=== PATIENT | male | born 1985 | race Caucasian/White ===

== ENCOUNTER 2017-05-20 08:56 | Inpatient (IN) | payer MEDICAID ==
[~2017-05-20] VITALS: Ht 188 cm; Wt 50.0 kg
[2017-05-20] VITALS (19 sets, daily range): BP systolic 78–133; BP diastolic 42–84
[2017-05-20] MEDS: ACCU-CHEK COMFORT CURVE STRIP VI SCH ×2 (01:00→18:08)
[2017-05-20] MEDS: InsuLIN REG 1unit/0.01ml Soln (100units/ml) SC SCH ×2 (01:00→18:08)
[2017-05-20 09:57] LABS: Basophils # (auto) 0 uL; Basophils % (auto) 0.2 % (0.0-2.0); Eosinophils # (auto) 0 uL; Hematocrit 44.2 % (41.0-53.0); Hemoglobin 14.5 g/dL (13.5-17.5); Lymphocytes # (auto) 1.1 uL; Lymphocytes % (auto) 12.3 % (10.0-50.0); Mean Corpuscular Hemoglobin 28.8 pg (28.0-32.0); Mean Corpuscular Hgb Conc. 32.8 g/dL (32.0-36.0); Mean Corpuscular Volume 87.7 fL (80.0-100.0); Monocytes # (auto) 1.2 uL; Monocytes % (auto) 13.1 % (0.0-12.0); Neutrophils # (auto) 6.9 uL; Neutrophils % (auto) 74.4 % (37.0-80.0); Nucleated Red Blood Cells % 1.6 %; Platelet Count (auto) 116 10^3/uL (140-450); Red Blood Cells 5.04 10^6/uL (4.5-5.90); Red Cell Distribution Width 12.8 % (11.8-14.3); White Blood Cell 9.3 10^3/uL (4.4-10.8)
[2017-05-20] MEDS ORDERED: ONDANSETRON HCL 4 MG/2 ML VIAL IV ONE (10:15)
[2017-05-20] MEDS ORDERED: SODIUM CHLORIDE 0.9% 1,000 ML IV ONE (10:15)
[2017-05-20] MEDS ORDERED: cefTRIAXone 1GM/10ml IVPUSH 10 ML IV ONE (10:15)
[2017-05-20 10:19] LABS: Albumin 2.5 g/dL (3.4-5.0); BUN/Creatinine Ratio 8.5; Bilirubin, Total 0.4 mg/dL (0.2-1.0); Potassium 3.9 mmol/L (3.5-5.1); Total Protein 5.8 g/dL (6.4-8.2)
[2017-05-20] MEDS ORDERED: NEOMYCIN-BACITRACIN-POLYM UNITDOSE PKG TOP OINT TOP ONE (10:30)
[2017-05-20] MEDS ORDERED: TETANUS-DIPTH-ACEL PERTUSSIS 0.5ML SYRG IM ONE (10:30)
[2017-05-20] MEDS ORDERED: LIDOCAINE 2%HCL (LOCAL ANESTH.) INJ 20ML MDV ID ONE (10:30)
[2017-05-20] MEDS ORDERED: SULFAMETH-TRIMETH 80/16MG-ML 15 ML in D5W 5% 500 ML IV ONE (11:00)
[2017-05-20 11:07] LABS: Lactic Acid w/Reflex 6.1 mmol/L (0.4-2.0)
[2017-05-20] MEDS ORDERED: ALBUTEROL SULF 2.5 MG/0.5ML(0.5%) NEB SOLN ONE (11:53)
[2017-05-20] MEDS ORDERED: IPRATROPIUM BROM 0.5 MG/2.5ML INH SOL ONE (11:53)
[2017-05-20] MEDS ORDERED: LORazepam 2MG/ML-1ML VIAL IV ONE ×2 (12:00→14:15)
[2017-05-20] MEDS ORDERED: IPRATROPIUM BROM 0.5 MG/2.5ML INH SOL NEB ONE (12:15)
[2017-05-20] MEDS ORDERED: ALBUTEROL SULF 2.5 MG/0.5ML(0.5%) NEB SOLN NEB ONE (12:15)
[2017-05-20] MEDS ORDERED: VANCOMYCIN PER PHARMACY 0 MG IV SCH (12:30)
[2017-05-20] MEDS: PIPERACILLIN-TAZOB 2.25GM 50 ML IV ONE ×2 (12:30→13:30)
[2017-05-20] MEDS ORDERED: methylPREDNISolone SOD SUCC 40 MG/ML VL IV ONE (12:30)
[2017-05-20] MEDS: VANCOMYCIN 1GM/250ML 250 ML IV ONE ×2 (12:30→13:30)
[2017-05-20] MEDS ORDERED: ACYCLOVIR 5MG/KG Q8HR PER RX 0 ML IV SCH (12:30)
[2017-05-20] MEDS ORDERED: BACTRIM 5MG/KG Q8HR PER RX 0 ML IV SCH (12:30)
[2017-05-20] MEDS ORDERED: MORPHINE SULFATE 10 MG/ML INJ 1ML SDV IV PRN ×2 (12:45)
[2017-05-20] MEDS ORDERED: HYDROcodone-ACET 5/325MG TAB PO PRN (12:45)
[2017-05-20] MEDS ORDERED: NITROGLYCERIN 0.4 MG SL TAB SL PRN (12:45)
[2017-05-20] MEDS ORDERED: LACTULOSE 20Gm/30ML SOLN PO PRN (12:45)
[2017-05-20] MEDS ORDERED: PROMETHAZINE HCL 25 MG/ML 1ML IV PRN (12:45)
[2017-05-20] MEDS ORDERED: TEMAZEPAM 15 MG CAP PO PRN (12:45)
[2017-05-20] MEDS ORDERED: LORazepam 0.5 MG TAB PO PRN (12:45)
[2017-05-20] MEDS ORDERED: DEXTROSE (50%) 50ML SYRG IV PRN (12:45)
[2017-05-20] MEDS ORDERED: MIDAZOLAM HCL 5 MG/ML-1ML VIAL IV ONE (13:00)
[2017-05-20] MEDS ORDERED: SUCCINYLCHOLINE CHLORIDE 20 MG/ML 10ML VIAL IV ONE (13:00)
[2017-05-20] MEDS ORDERED: MIDAZOLAM DRIP 50 mg/50mL 50 ML IV ONE ×2 (13:07→15:45)
[2017-05-20] MEDS: MIDAZOLAM DRIP 50 mg/50mL 50 ML IV SCH ×3 (13:27→23:12)
[2017-05-20] MEDS: FLUCONAZOLE 200MG/100ML 100 ML IV SCH ×4 (13:30→20:00)
[2017-05-20] MEDS ORDERED: PROPOFOL 100 ML IV ONE (13:38)
[2017-05-20] MEDS: PROPOFOL 100 ML IV SCH ×3 (13:40→23:12)
[2017-05-20] MEDS: CLARITHROMYCIN 500 MG TAB PO SCH ×2 (14:00→23:16)
[2017-05-20] MEDS ORDERED: LORazepam 2MG/ML-1ML VIAL ONE ×2 (14:04→14:07)
[2017-05-20] MEDS ORDERED: MORPHINE SULFATE 10 MG/ML INJ 1ML SDV IV ONE (14:45)
[2017-05-20 14:54] LABS: Urine Bacteria FEW /hpf (None Seen); Urine Blood 1+ /uL (Negative); Urine Mucus FEW (None Seen); Urine Specific Gravity 1.018 (1.001-1.035); Urine WBC 6 /hpf (0 - 3)
[2017-05-20 15:09] LABS: Alcohol, Urine < 3.0 mg/dL (0-5); Amphetamine Screen, Urine POSITIVE (NEGATIVE); Barbiturate Scree,Urine NEGATIVE (NEGATIVE); Benzodiazephine Screen, Urine POSITIVE (NEGATIVE); Cannabinoid Screen, Urine NEGATIVE (NEGATIVE); Cocaine Screen, Urine NEGATIVE (NEGATIVE); Opiate Scree,Urine POSITIVE (NEGATIVE); Phencyclidine Screen, Urine NEGATIVE (NEGATIVE)
[2017-05-20] MEDS ORDERED: NOREPINEPHRINE 8 MG/250ML KIT 250 ML IV ONE (15:46)
[2017-05-20] MEDS ORDERED: VANCOMYCIN 1GM/250ML 250 ML IV ONE (16:00)
[2017-05-20] MEDS: NOREPINEPHRINE 8 MG/250ML KIT 250 ML IV SCH ×2 (16:02→20:00)
[2017-05-20] MEDS ORDERED: NOREPINEPHRINE 8 MG/250ML KIT 250 ML IV SCH (17:03)
[2017-05-20] MEDS ORDERED: ACYCLOVIR SOD 50MG/ML 500 MG in D5W 5% 100 ML IV ONE (18:00)
[2017-05-20] MEDS: methylPREDNISolone SOD SUCC 40 MG/ML VL IV SCH (18:03)
[2017-05-20] MEDS: LORAZEPAM MDV 2MG/ML 50 MG in SODIUM CHL 0.9% 25 ML IV SCH (19:00)
[2017-05-20] MEDS: IPRATROPIUM BROM 0.5 MG/2.5ML INH SOL NEB SCH ×2 (19:11→23:56)
[2017-05-20] MEDS: ALBUTEROL SULF 2.5 MG/0.5ML(0.5%) NEB SOLN NEB SCH (19:11)
[2017-05-20] MEDS: ACETAMINOPHEN 500 MG TAB PO PRN (20:29)
[2017-05-20] MEDS: PIPERACILLIN-TAZOB 2.25GM 50 ML IV SCH (22:00)
[2017-05-20] MEDS ORDERED: SULFAMETH-TRIMETH 80/16MG-ML 15 ML in D5W 5% 250 ML IV SCH (23:00)
[2017-05-21] VITALS (58 sets, daily range): BP systolic 61–153; BP diastolic 31–119
[2017-05-21] MEDS: MIDAZOLAM DRIP 50 mg/50mL 50 ML IV SCH ×2 (02:54→22:27)
[2017-05-21 04:05] LABS: Basophils # (auto) 0 uL; Eosinophils # (auto) 0 uL; Eosinophils % (auto) 0.1 % (0.0-7.0); Lymphocytes # (auto) 0.6 uL; Mean Corpuscular Hgb Conc. 33.7 g/dL (32.0-36.0); Monocytes # (auto) 0.5 uL; Neutrophils # (auto) 6.3 uL; Platelet Count (auto) 63 10^3/uL (140-450); Red Blood Cells 4.61 10^6/uL (4.5-5.90); White Blood Cell 7.4 10^3/uL (4.4-10.8)
[2017-05-21 04:08] LABS: Basophils % (auto) 0.1 % (0.0-2.0); Hematocrit 39.8 % (41.0-53.0); Hemoglobin 13.4 g/dL (13.5-17.5); Lymphocytes % (auto) 7.7 % (10.0-50.0); Mean Corpuscular Hemoglobin 29.1 pg (28.0-32.0); Mean Corpuscular Volume 86.4 fL (80.0-100.0); Monocytes % (auto) 6.4 % (0.0-12.0); Neutrophils % (auto) 85.7 % (37.0-80.0); Nucleated Red Blood Cells % 0.1 %; Red Cell Distribution Width 12.9 % (11.8-14.3)
[2017-05-21 04:26] LABS: Calcium 6.4 mg/dL (8.5-10.1)
[2017-05-21 04:29] LABS: BUN/Creatinine Ratio 25.6
[2017-05-21 04:31] LABS: Bilirubin, Total 0.4 mg/dL (0.2-1.0); Total Protein 4.8 g/dL (6.4-8.2)
[2017-05-21 04:36] LABS: Cholesterol 63 mg/dL (< 200); HDL Cholesterol 23 mg/dL (40-59); LDL Cholesterol 12 mg/dL (< 100); Triglycerides 208 mg/dL (< 150)
[2017-05-21] MEDS ORDERED: ACYCLOVIR SOD 50MG/ML 250 MG in D5W 5% 100 ML IV SCH (05:00)
[2017-05-21] MEDS: methylPREDNISolone SOD SUCC 40 MG/ML VL IV SCH ×2 (05:22)
[2017-05-21] MEDS: PROPOFOL 100 ML IV SCH ×2 (05:25→20:11)
[2017-05-21] MEDS: IPRATROPIUM BROM 0.5 MG/2.5ML INH SOL NEB SCH ×3 (06:30→18:36)
[2017-05-21] MEDS: ALBUTEROL SULF 2.5 MG/0.5ML(0.5%) NEB SOLN NEB SCH ×4 (06:30→18:36)
[2017-05-21] MEDS: InsuLIN REG 1unit/0.01ml Soln (100units/ml) SC SCH (07:00)
[2017-05-21] MEDS: ACCU-CHEK COMFORT CURVE STRIP VI SCH ×2 (07:12→11:50)
[2017-05-21] MEDS: PIPERACILLIN-TAZOB 2.25GM 50 ML IV SCH ×3 (08:00→22:29)
[2017-05-21] MEDS: VANCOMYCIN 1GM/250ML 250 ML IV SCH ×2 (08:03→21:00)
[2017-05-21] MEDS: CLARITHROMYCIN 500 MG TAB PO SCH (10:00)
[2017-05-21] MEDS ORDERED: SODIUM CHLORIDE 0.9% 1,000 ML IV SCH (12:45)
[2017-05-21] MEDS ORDERED: OSELTAMIVIR 75MG/5ML ORAL SUSP GT ONE (12:45)
[2017-05-21] MEDS ORDERED: ACETYLCYSTEINE 10 %(100MG/ML) SOL 4ML NEB SCH ×2 (14:00→16:00)
[2017-05-21] MEDS ORDERED: ALBUTEROL SULF 2.5 MG/0.5ML(0.5%) NEB SOLN NEB SCH (14:00)
[2017-05-21] MEDS: LORAZEPAM MDV 2MG/ML 50 MG in SODIUM CHL 0.9% 25 ML IV SCH (14:17)
[2017-05-21 14:59] LABS: INR 1.21 (0.9-1.15); Prothrombin Time 13.2 sec (9.37-12.3)
[2017-05-21] MEDS ORDERED: LIDOCAINE 1% HCL (LOCAL ANESTH.) INJ 20ML MDV ID ONE (15:45)
[2017-05-21] MEDS: SODIUM BICARBONATE 50ML VIAL 75 ML in SOD CHL 0.45% 1,000 ML IV SCH (17:10)
[2017-05-21] MEDS ORDERED: FLUCONAZOLE 200MG/100ML 100 ML IV SCH (18:00)
[2017-05-21] MEDS: ACETYLCYSTEINE 10 %(100MG/ML) SOL 4ML NEB SCH (18:36)
[2017-05-21] MEDS: fentaNYL Drip 2500mCg/250mlNS 250 ML IV SCH (18:46)
[2017-05-21] MEDS: SODIUM CHLOR 0.9% PF (SALINE LOCK) 10ML VIAL IV SCH (22:28)
[2017-05-21] MEDS: OSELTAMIVIR 75MG/5ML ORAL SUSP GT SCH (22:28)
[2017-05-22] VITALS (82 sets, daily range): BP systolic 91–133; BP diastolic 40–90
[2017-05-22] MEDS: IPRATROPIUM BROM 0.5 MG/2.5ML INH SOL NEB SCH ×4 (00:07→18:46)
[2017-05-22] MEDS: ALBUTEROL SULF 2.5 MG/0.5ML(0.5%) NEB SOLN NEB SCH ×4 (00:07→18:46)
[2017-05-22] MEDS: PROPOFOL 100 ML IV SCH ×3 (00:29→21:28)
[2017-05-22] MEDS: MIDAZOLAM DRIP 50 mg/50mL 50 ML IV SCH ×2 (02:00→06:49)
[2017-05-22 04:36] LABS: Albumin 1.7 g/dL (3.4-5.0); BUN/Creatinine Ratio 26.4; Bilirubin, Total 0.4 mg/dL (0.2-1.0); Calcium 6.8 mg/dL (8.5-10.1); Potassium 3.7 mmol/L (3.5-5.1); Total Protein 5.5 g/dL (6.4-8.2)
[2017-05-22 04:38] LABS: Hematocrit 34.1 % (41.0-53.0); Hemoglobin 11.7 g/dL (13.5-17.5); Mean Corpuscular Hemoglobin 29.5 pg (28.0-32.0); Mean Corpuscular Hgb Conc. 34.3 g/dL (32.0-36.0); Platelet Count (auto) 48 10^3/uL (140-450); Red Blood Cells 3.96 10^6/uL (4.5-5.90); Red Cell Distribution Width 13.1 % (11.8-14.3); White Blood Cell 14.2 10^3/uL (4.4-10.8)
[2017-05-22 04:41] LABS: Basophils % (manual) 0 (0.0-2.0); Blast Cells 0; Eosinophils % (manual) 0 (0-7); Myelocytes % 0; Promyelocytes % 0; Reactive Lymphocytes 0
[2017-05-22 05:07] LABS: Band Neutrophils % (manual) 31; Lymphocytes % (manual) 1 (10.0-50.0); Metamyelocytes % 2; Monocytes % (manual) 1 (0-12)
[2017-05-22] MEDS: PIPERACILLIN-TAZOB 2.25GM 50 ML IV SCH ×3 (06:00→22:32)
[2017-05-22] MEDS: ACETYLCYSTEINE 10 %(100MG/ML) SOL 4ML NEB SCH (06:44)
[2017-05-22] MEDS: VANCOMYCIN 1GM/250ML 250 ML IV SCH ×2 (09:00→21:03)
[2017-05-22] MEDS: SODIUM BICARBONATE 50ML VIAL 75 ML in SOD CHL 0.45% 1,000 ML IV SCH (09:06)
[2017-05-22] MEDS: OSELTAMIVIR 75MG/5ML ORAL SUSP GT SCH ×2 (10:00→22:00)
[2017-05-22] MEDS: SODIUM CHLOR 0.9% PF (SALINE LOCK) 10ML VIAL IV SCH ×2 (10:56→22:26)
[2017-05-22] MEDS: PANTOPRAZOLE 40 MG/10 ML VIAL IV SCH (10:56)
[2017-05-22] MEDS ORDERED: GLYCOPYRROLATE 0.2 MG/ML 1ML VIAL ONE (11:48)
[2017-05-22] MEDS ORDERED: LIDOCAINE 2%HCL (LOCAL ANESTH.) INJ 20ML MDV ONE (11:48)
[2017-05-22] MEDS ORDERED: SODIUM CHLORIDE LOCK 20 ML ONE (11:49)
[2017-05-22] MEDS ORDERED: EPINEPHrine HCL 1 MG/1 ML AMP ONE (11:49)
[2017-05-22] MEDS ORDERED: BENZOCAINE (DENTAL) 20 % SPRAY 60ML MT ONE (11:49)
[2017-05-22] MEDS ORDERED: LIDOCAINE HCL 2% TOP JELLY 5ML TOP ONE (11:50)
[2017-05-22] MEDS ORDERED: MIDAZOLAM HCL 5 MG/ML-1ML VIAL ONE (11:50)
[2017-05-22] MEDS ORDERED: FLUMAZENIL 0.1 MG/ML INJ 10ML MDV IV ONE (11:52)
[2017-05-22] MEDS ORDERED: NALOXONE HCL 0.4 MG/ML VIAL ONE (11:52)
[2017-05-22] MEDS ORDERED: fentaNYL CITRATE 100 MCG/2 ML VL ONE (11:54)
[2017-05-22] MEDS ORDERED: ACETYLCYSTEINE 20%(200MG/ML) SOLN 30ML ONE (12:07)
[2017-05-22] MEDS: SODIUM CHLORIDE 0.9% 1,000 ML IV SCH (12:15)
[2017-05-22] MEDS: LORAZEPAM MDV 2MG/ML 50 MG in SODIUM CHL 0.9% 25 ML IV SCH (14:17)
[2017-05-22] MEDS: NOREPINEPHRINE 8 MG/250ML KIT 250 ML IV SCH (18:17)
[2017-05-22] MEDS: fentaNYL Drip 2500mCg/250mlNS 250 ML IV SCH (18:21)
[2017-05-22] MEDS ORDERED: OSELTAMIVIR 75 MG CAP PO ONE (22:47)
[2017-05-22] MEDS: ACETAMINOPHEN 500 MG TAB PO PRN (23:06)
[2017-05-23] VITALS (106 sets, daily range): BP systolic 97–127; BP diastolic 36–85
[2017-05-23] MEDS: ACETYLCYSTEINE 10 %(100MG/ML) SOL 4ML NEB SCH ×2 (00:27→06:58)
[2017-05-23] MEDS: IPRATROPIUM BROM 0.5 MG/2.5ML INH SOL NEB SCH ×4 (00:27→18:48)
[2017-05-23] MEDS: ALBUTEROL SULF 2.5 MG/0.5ML(0.5%) NEB SOLN NEB SCH ×4 (00:27→18:47)
[2017-05-23] MEDS: SODIUM CHLORIDE 0.9% 1,000 ML IV SCH ×2 (04:06→22:07)
[2017-05-23 04:09] LABS: Hemoglobin 10.3 g/dL (13.5-17.5); Platelet Count (auto) 31 10^3/uL (140-450); Red Cell Distribution Width 13.3 % (11.8-14.3); White Blood Cell 11.3 10^3/uL (4.4-10.8)
[2017-05-23 04:12] LABS: Hematocrit 29.1 % (41.0-53.0); Mean Corpuscular Hemoglobin 30.6 pg (28.0-32.0); Mean Corpuscular Hgb Conc. 35.5 g/dL (32.0-36.0); Mean Corpuscular Volume 86.3 fL (80.0-100.0); Red Blood Cells 3.37 10^6/uL (4.5-5.90)
[2017-05-23 04:20] LABS: Basophils % (manual) 0 (0.0-2.0); Blast Cells 0; Eosinophils % (manual) 0 (0-7); Metamyelocytes % 0; Promyelocytes % 0; Reactive Lymphocytes 0
[2017-05-23 04:23] LABS: Potassium 3.5 mmol/L (3.5-5.1)
[2017-05-23 04:27] LABS: Albumin 1.4 g/dL (3.4-5.0); BUN/Creatinine Ratio 30.6; Calcium 7.3 mg/dL (8.5-10.1)
[2017-05-23 04:29] LABS: Bilirubin, Total 0.5 mg/dL (0.2-1.0); Total Protein 5.3 g/dL (6.4-8.2)
[2017-05-23] MEDS: PIPERACILLIN-TAZOB 2.25GM 50 ML IV SCH (05:32)
[2017-05-23 06:17] LABS: Band Neutrophils % (manual) 27; Lymphocytes % (manual) 13 (10.0-50.0); Monocytes % (manual) 4 (0-12); Myelocytes % 1
[2017-05-23] MEDS: NOREPINEPHRINE 8 MG/250ML KIT 250 ML IV SCH (07:58)
[2017-05-23] MEDS: VANCOMYCIN 1GM/250ML 250 ML IV SCH (08:01)
[2017-05-23] MEDS: PANTOPRAZOLE 40 MG/10 ML VIAL IV SCH (10:00)
[2017-05-23] MEDS: OSELTAMIVIR 75MG/5ML ORAL SUSP GT SCH ×2 (10:00→22:37)
[2017-05-23] MEDS: SODIUM CHLOR 0.9% PF (SALINE LOCK) 10ML VIAL IV SCH ×2 (10:23→22:07)
[2017-05-23] MEDS: PIPERACILLIN-TAZOB 3.375GM 50 ML IV SCH ×3 (12:27→23:22)
[2017-05-23] MEDS: fentaNYL Drip 2500mCg/250mlNS 250 ML IV SCH (12:49)
[2017-05-23] MEDS: LORAZEPAM MDV 2MG/ML 50 MG in SODIUM CHL 0.9% 25 ML IV SCH (12:51)
[2017-05-23] MEDS: ACETAMINOPHEN 500 MG TAB PO PRN (13:30)
[2017-05-23] MEDS: PROPOFOL 100 ML IV SCH (13:34)
[2017-05-23] MEDS: MIDAZOLAM DRIP 50 mg/50mL 50 ML IV SCH (15:50)
[2017-05-23 16:46] LABS: Hematocrit 28.5 % (41.0-53.0)
[2017-05-23] MEDS: VANCOMYCIN 1,250 MG in D5W 5% 250 ML IV SCH (18:17)
[2017-05-24] VITALS (106 sets, daily range): BP systolic 94–134; BP diastolic 42–78
[2017-05-24] MEDS: ALBUTEROL SULF 2.5 MG/0.5ML(0.5%) NEB SOLN NEB SCH ×4 (00:42→18:37)
[2017-05-24] MEDS: ACETYLCYSTEINE 10 %(100MG/ML) SOL 4ML NEB SCH ×2 (00:42→06:15)
[2017-05-24] MEDS: IPRATROPIUM BROM 0.5 MG/2.5ML INH SOL NEB SCH ×4 (00:42→18:38)
[2017-05-24] MEDS: PROPOFOL 100 ML IV SCH ×3 (02:43→18:23)
[2017-05-24 04:31] LABS: Hematocrit 30.3 % (41.0-53.0); Hemoglobin 10.5 g/dL (13.5-17.5); Mean Corpuscular Hemoglobin 29.6 pg (28.0-32.0); Mean Corpuscular Hgb Conc. 34.5 g/dL (32.0-36.0); Mean Corpuscular Volume 85.8 fL (80.0-100.0); Platelet Count (auto) 47 10^3/uL (140-450); Red Blood Cells 3.53 10^6/uL (4.5-5.90); Red Cell Distribution Width 13.1 % (11.8-14.3)
[2017-05-24 05:15] LABS: Basophils % (manual) 0 (0.0-2.0); Blast Cells 0; Eosinophils % (manual) 0 (0-7); Metamyelocytes % 0; Myelocytes % 0; Promyelocytes % 0; Reactive Lymphocytes 0
[2017-05-24] MEDS: MIDAZOLAM DRIP 50 mg/50mL 50 ML IV SCH ×2 (05:43→16:05)
[2017-05-24] MEDS: PIPERACILLIN-TAZOB 3.375GM 50 ML IV SCH ×3 (05:45→17:42)
[2017-05-24] MEDS: POTASSIUM CHL 20MEQ/100ML 100 ML IV SCH ×2 (05:58→08:42)
[2017-05-24] MEDS: VANCOMYCIN 1,250 MG in D5W 5% 250 ML IV SCH (06:49)
[2017-05-24 07:44] LABS: Band Neutrophils % (manual) 30; Lymphocytes % (manual) 2 (10.0-50.0); Monocytes % (manual) 1 (0-12)
[2017-05-24] MEDS: PANTOPRAZOLE 40 MG/10 ML VIAL IV SCH (10:00)
[2017-05-24] MEDS: OSELTAMIVIR 75MG/5ML ORAL SUSP GT SCH ×2 (10:00→22:00)
[2017-05-24] MEDS: SODIUM CHLOR 0.9% PF (SALINE LOCK) 10ML VIAL IV SCH ×2 (10:00→22:00)
[2017-05-24] MEDS ORDERED: POTASSIUM CHL 20MEQ/100ML 100 ML IV ONE (12:45)
[2017-05-24] MEDS: LORAZEPAM MDV 2MG/ML 50 MG in SODIUM CHL 0.9% 25 ML IV SCH (13:09)
[2017-05-24] MEDS: SODIUM CHLORIDE 0.9% 1,000 ML IV SCH (13:09)
[2017-05-24] MEDS: NOREPINEPHRINE 8 MG/250ML KIT 250 ML IV SCH (16:04)
[2017-05-24] MEDS: fentaNYL Drip 2500mCg/250mlNS 250 ML IV SCH (16:48)
[2017-05-24] MEDS ORDERED: Nutren Pulmonary 1 Liter NG SCH (17:30)
[2017-05-24] MEDS: VANCOMYCIN 1GM/250ML 250 ML IV SCH (21:00)
[2017-05-25] VITALS (103 sets, daily range): BP systolic 110–135; BP diastolic 48–87
[2017-05-25] MEDS: ACETYLCYSTEINE 10 %(100MG/ML) SOL 4ML NEB SCH ×3 (00:29→18:36)
[2017-05-25] MEDS: ALBUTEROL SULF 2.5 MG/0.5ML(0.5%) NEB SOLN NEB SCH ×4 (00:29→18:36)
[2017-05-25] MEDS: IPRATROPIUM BROM 0.5 MG/2.5ML INH SOL NEB SCH ×4 (00:29→18:36)
[2017-05-25 04:04] LABS: Hematocrit 32.1 % (41.0-53.0); Hemoglobin 10.9 g/dL (13.5-17.5); Mean Corpuscular Hgb Conc. 33.9 g/dL (32.0-36.0); Mean Corpuscular Volume 85.7 fL (80.0-100.0); Platelet Count (auto) 67 10^3/uL (140-450); Red Blood Cells 3.74 10^6/uL (4.5-5.90); Red Cell Distribution Width 13.6 % (11.8-14.3); White Blood Cell 24.1 10^3/uL (4.4-10.8)
[2017-05-25] MEDS: VANCOMYCIN 1GM/250ML 250 ML IV SCH (04:08)
[2017-05-25 04:09] LABS: Basophils % (manual) 0 (0.0-2.0); Blast Cells 0; Myelocytes % 0; Promyelocytes % 0; Reactive Lymphocytes 0
[2017-05-25 04:30] LABS: Band Neutrophils % (manual) 16; Eosinophils % (manual) 1 (0-7); Lymphocytes % (manual) 7 (10.0-50.0); Metamyelocytes % 2; Monocytes % (manual) 2 (0-12)
[2017-05-25] MEDS: PROPOFOL 100 ML IV SCH ×3 (05:53→18:23)
[2017-05-25] MEDS: PIPERACILLIN-TAZOB 3.375GM 50 ML IV SCH ×4 (05:53→18:22)
[2017-05-25] MEDS: SODIUM CHLORIDE 0.9% 1,000 ML IV SCH (07:52)
[2017-05-25] MEDS: fentaNYL Drip 2500mCg/250mlNS 250 ML IV SCH ×2 (07:52→18:23)
[2017-05-25 08:41] LABS: Calcium 7.6 mg/dL (8.5-10.1); Magnesium 2.5 mg/dL (1.6-2.6); Potassium 3.1 mmol/L (3.5-5.1)
[2017-05-25] MEDS ORDERED: POTASSIUM CHL 10% (20 MEQ/15ML) 15ml ORAL SOLN PO ONE ×3 (09:15→17:00)
[2017-05-25] MEDS: SODIUM CHLOR 0.9% PF (SALINE LOCK) 10ML VIAL IV SCH ×2 (09:37→22:00)
[2017-05-25] MEDS: PANTOPRAZOLE 40 MG/10 ML VIAL IV SCH (09:37)
[2017-05-25] MEDS: OSELTAMIVIR 75MG/5ML ORAL SUSP GT SCH ×2 (09:38→22:00)
[2017-05-25] MEDS: LINEZOLID 600MG/300ML 300 ML IV SCH ×2 (09:38→22:00)
[2017-05-25] MEDS: MIDAZOLAM DRIP 50 mg/50mL 50 ML IV SCH ×2 (10:56→15:00)
[2017-05-25] MEDS: LORAZEPAM MDV 2MG/ML 50 MG in SODIUM CHL 0.9% 25 ML IV SCH (14:17)
[2017-05-25] MEDS: NOREPINEPHRINE 8 MG/250ML KIT 250 ML IV SCH (18:17)
[2017-05-25] MEDS: ALBUTEROL SULF 2.5 MG/0.5ML(0.5%) NEB SOLN NEB PRN (22:12)
[2017-05-26] VITALS (72 sets, daily range): BP systolic 106–135; BP diastolic 46–88
[2017-05-26] MEDS: IPRATROPIUM BROM 0.5 MG/2.5ML INH SOL NEB SCH ×4 (00:29→18:25)
[2017-05-26] MEDS: ALBUTEROL SULF 2.5 MG/0.5ML(0.5%) NEB SOLN NEB SCH ×4 (00:29→18:25)
[2017-05-26] MEDS: ALBUTEROL SULF 2.5 MG/0.5ML(0.5%) NEB SOLN NEB PRN (02:11)
[2017-05-26 05:35] LABS: Hemoglobin 10.2 g/dL (13.5-17.5); Mean Corpuscular Hemoglobin 29.3 pg (28.0-32.0)
[2017-05-26 05:37] LABS: Hematocrit 30.1 % (41.0-53.0); Mean Corpuscular Hgb Conc. 33.8 g/dL (32.0-36.0); Mean Corpuscular Volume 86.8 fL (80.0-100.0); Platelet Count (auto) 29 10^3/uL (140-450); Red Blood Cells 3.46 10^6/uL (4.5-5.90); Red Cell Distribution Width 13.9 % (11.8-14.3); White Blood Cell 17.9 10^3/uL (4.4-10.8)
[2017-05-26 05:40] LABS: Band Neutrophils % (manual) 0; Basophils % (manual) 0 (0.0-2.0); Blast Cells 0; Eosinophils % (manual) 0 (0-7); Metamyelocytes % 0; Myelocytes % 0; Promyelocytes % 0; Reactive Lymphocytes 0
[2017-05-26 05:59] LABS: Albumin 1.4 g/dL (3.4-5.0); BUN/Creatinine Ratio 35.7; Bilirubin, Total 1.2 mg/dL (0.2-1.0); Calcium 7.4 mg/dL (8.5-10.1); Potassium 4.4 mmol/L (3.5-5.1); Total Protein 5.4 g/dL (6.4-8.2)
[2017-05-26] MEDS: ACETYLCYSTEINE 10 %(100MG/ML) SOL 4ML NEB SCH ×2 (06:42→18:26)
[2017-05-26] MEDS: PIPERACILLIN-TAZOB 3.375GM 50 ML IV SCH ×4 (09:01→17:54)
[2017-05-26 09:24] LABS: Lymphocytes % (manual) 7 (10.0-50.0); Monocytes % (manual) 1 (0-12)
[2017-05-26] MEDS: PANTOPRAZOLE 40 MG/10 ML VIAL IV SCH (09:33)
[2017-05-26] MEDS: LINEZOLID 600MG/300ML 300 ML IV SCH (09:33)
[2017-05-26] MEDS: SODIUM CHLOR 0.9% PF (SALINE LOCK) 10ML VIAL IV SCH ×2 (09:33→22:15)
[2017-05-26] MEDS: OSELTAMIVIR 75MG/5ML ORAL SUSP GT SCH (09:34)
[2017-05-26] MEDS: fentaNYL Drip 2500mCg/250mlNS 250 ML IV SCH (10:06)
[2017-05-26] MEDS: PROPOFOL 100 ML IV SCH ×3 (10:30→19:30)
[2017-05-26] MEDS: MIDAZOLAM DRIP 50 mg/50mL 50 ML IV SCH ×3 (10:30→19:30)
[2017-05-26] MEDS ORDERED: VANCOMYCIN PER PHARMACY 0 MG IV SCH (12:15)
[2017-05-26] MEDS: LORAZEPAM MDV 2MG/ML 50 MG in SODIUM CHL 0.9% 25 ML IV SCH (14:17)
[2017-05-26] MEDS: VANCOMYCIN 1,250 MG in D5W 5% 250 ML IV SCH (15:00)
[2017-05-26] MEDS: ACETAMINOPHEN 500 MG TAB PO PRN (17:56)
[2017-05-26] MEDS: FREE WATER GT SCH (18:00)
[2017-05-26] MEDS: NOREPINEPHRINE 8 MG/250ML KIT 250 ML IV SCH (18:17)
[2017-05-27] VITALS (78 sets, daily range): BP systolic 92–137; BP diastolic 49–90
[2017-05-27] MEDS: PIPERACILLIN-TAZOB 3.375GM 50 ML IV SCH ×5 (00:10→23:15)
[2017-05-27] MEDS: FREE WATER GT SCH ×5 (00:10→23:15)
[2017-05-27] MEDS: ALBUTEROL SULF 2.5 MG/0.5ML(0.5%) NEB SOLN NEB SCH ×4 (00:38→18:30)
[2017-05-27] MEDS: IPRATROPIUM BROM 0.5 MG/2.5ML INH SOL NEB SCH ×4 (00:38→18:29)
[2017-05-27] MEDS: VANCOMYCIN 1,250 MG in D5W 5% 250 ML IV SCH ×2 (02:18→14:01)
[2017-05-27 05:31] LABS: Basophils # (auto) 0.2 uL; Basophils % (auto) 1.2 % (0.0-2.0); Eosinophils # (auto) 0.2 uL; Eosinophils % (auto) 1.2 % (0.0-7.0); Hematocrit 31.7 % (41.0-53.0); Hemoglobin 10.5 g/dL (13.5-17.5); Lymphocytes # (auto) 1.1 uL; Lymphocytes % (auto) 6.1 % (10.0-50.0); Mean Corpuscular Hemoglobin 28.7 pg (28.0-32.0); Mean Corpuscular Hgb Conc. 33.1 g/dL (32.0-36.0); Mean Corpuscular Volume 86.7 fL (80.0-100.0); Monocytes # (auto) 0.8 uL; Monocytes % (auto) 4.5 % (0.0-12.0); Neutrophils # (auto) 15.9 uL; Nucleated Red Blood Cells % 0.1 %; Platelet Count (auto) 74 10^3/uL (140-450); Red Blood Cells 3.66 10^6/uL (4.5-5.90); Red Cell Distribution Width 13.8 % (11.8-14.3); White Blood Cell 18.3 10^3/uL (4.4-10.8)
[2017-05-27] MEDS: ACETYLCYSTEINE 10 %(100MG/ML) SOL 4ML NEB SCH ×2 (06:10→18:30)
[2017-05-27 06:15] LABS: BUN/Creatinine Ratio 39.6; Calcium 7.5 mg/dL (8.5-10.1); Potassium 3.7 mmol/L (3.5-5.1)
[2017-05-27] MEDS ORDERED: DILTIAZEM HCL 25 MG/5 ML VIAL IV ONE (07:30)
[2017-05-27 08:18] LABS: Magnesium 2.7 mg/dL (1.6-2.6); Phosphorus 5.6 mg/dL (2.5-4.90)
[2017-05-27] MEDS: MIDAZOLAM DRIP 50 mg/50mL 50 ML IV SCH ×4 (08:25→21:13)
[2017-05-27] MEDS: PROPOFOL 100 ML IV SCH ×3 (08:26→18:03)
[2017-05-27] MEDS: SODIUM CHLOR 0.9% PF (SALINE LOCK) 10ML VIAL IV SCH ×2 (10:12→22:00)
[2017-05-27] MEDS: PANTOPRAZOLE 40 MG/10 ML VIAL IV SCH (10:12)
[2017-05-27] MEDS: fentaNYL Drip 2500mCg/250mlNS 250 ML IV SCH (10:17)
[2017-05-27] MEDS ORDERED: MORPHINE SULFATE 10 MG/ML INJ 1ML SDV IV PRN (13:00)
[2017-05-27] MEDS ORDERED: LORazepam 2MG/ML-1ML VIAL IV PRN (13:00)
[2017-05-27] MEDS: methylPREDNISolone SOD SUCC 40 MG/ML VL IV SCH ×2 (14:01→22:00)
[2017-05-27] MEDS: LORAZEPAM MDV 2MG/ML 50 MG in SODIUM CHL 0.9% 25 ML IV SCH (15:23)
[2017-05-27] MEDS: NOREPINEPHRINE 8 MG/250ML KIT 250 ML IV SCH (18:17)
[2017-05-27] MEDS: Nutren Pulmonary 1 Liter NG SCH (18:31)
[2017-05-28] VITALS (49 sets, daily range): BP systolic 101–157; BP diastolic 42–98
[2017-05-28] MEDS: ALBUTEROL SULF 2.5 MG/0.5ML(0.5%) NEB SOLN NEB SCH ×4 (00:20→18:20)
[2017-05-28] MEDS: IPRATROPIUM BROM 0.5 MG/2.5ML INH SOL NEB SCH ×4 (00:20→18:20)
[2017-05-28] MEDS: PROPOFOL 100 ML IV SCH ×4 (00:59→23:20)
[2017-05-28] MEDS: fentaNYL Drip 2500mCg/250mlNS 250 ML IV SCH ×2 (01:00→10:22)
[2017-05-28] MEDS: MIDAZOLAM DRIP 50 mg/50mL 50 ML IV SCH ×3 (02:09→23:19)
[2017-05-28] MEDS: VANCOMYCIN 1,250 MG in D5W 5% 250 ML IV SCH ×2 (02:13→14:15)
[2017-05-28 04:33] LABS: Basophils # (auto) 0 uL; Eosinophils # (auto) 0 uL; Hematocrit 30.1 % (41.0-53.0); Hemoglobin 9.9 g/dL (13.5-17.5); Lymphocytes # (auto) 0.6 uL; Lymphocytes % (auto) 3.3 % (10.0-50.0); Mean Corpuscular Hemoglobin 28.6 pg (28.0-32.0); Mean Corpuscular Hgb Conc. 32.9 g/dL (32.0-36.0); Mean Corpuscular Volume 86.8 fL (80.0-100.0); Monocytes # (auto) 0.5 uL; Monocytes % (auto) 2.7 % (0.0-12.0); Neutrophils # (auto) 17.2 uL; Nucleated Red Blood Cells % 0.1 %; Platelet Count (auto) 90 10^3/uL (140-450); Red Blood Cells 3.47 10^6/uL (4.5-5.90); Red Cell Distribution Width 13.9 % (11.8-14.3); White Blood Cell 18.3 10^3/uL (4.4-10.8)
[2017-05-28 04:51] LABS: Albumin 1.4 g/dL (3.4-5.0); BUN/Creatinine Ratio 43.5; Bilirubin, Total 0.7 mg/dL (0.2-1.0); Calcium 7.2 mg/dL (8.5-10.1); Potassium 4.3 mmol/L (3.5-5.1); Total Protein 5.9 g/dL (6.4-8.2)
[2017-05-28] MEDS: PIPERACILLIN-TAZOB 3.375GM 50 ML IV SCH ×4 (05:58→23:19)
[2017-05-28] MEDS: methylPREDNISolone SOD SUCC 40 MG/ML VL IV SCH ×3 (05:58→23:19)
[2017-05-28] MEDS: FREE WATER GT SCH ×3 (06:00→18:00)
[2017-05-28] MEDS: ACETYLCYSTEINE 10 %(100MG/ML) SOL 4ML NEB SCH ×2 (06:49→18:20)
[2017-05-28] MEDS: PANTOPRAZOLE 40 MG/10 ML VIAL IV SCH (10:21)
[2017-05-28] MEDS: SODIUM CHLOR 0.9% PF (SALINE LOCK) 10ML VIAL IV SCH ×2 (10:21→22:00)
[2017-05-28] MEDS: Nutren Pulmonary 1 Liter NG SCH (10:22)
[2017-05-28] MEDS ORDERED: FUROSEMIDE 20 MG/2 ML VIAL IV ONE (13:45)
[2017-05-28] MEDS: LORAZEPAM MDV 2MG/ML 50 MG in SODIUM CHL 0.9% 25 ML IV SCH (14:15)
[2017-05-28] MEDS: NOREPINEPHRINE 8 MG/250ML KIT 250 ML IV SCH (18:17)
[2017-05-29] VITALS (82 sets, daily range): BP systolic 100–167; BP diastolic 44–107
[2017-05-29] MEDS: ALBUTEROL SULF 2.5 MG/0.5ML(0.5%) NEB SOLN NEB SCH ×4 (00:23→18:27)
[2017-05-29] MEDS: IPRATROPIUM BROM 0.5 MG/2.5ML INH SOL NEB SCH ×4 (00:23→18:27)
[2017-05-29] MEDS: fentaNYL Drip 2500mCg/250mlNS 250 ML IV SCH ×3 (00:49→20:30)
[2017-05-29] MEDS: VANCOMYCIN 1,250 MG in D5W 5% 250 ML IV SCH ×2 (02:00→14:19)
[2017-05-29] MEDS: MIDAZOLAM DRIP 50 mg/50mL 50 ML IV SCH ×5 (03:15→23:11)
[2017-05-29 04:33] LABS: BUN/Creatinine Ratio 46.7; Calcium 7.4 mg/dL (8.5-10.1); Potassium 4.7 mmol/L (3.5-5.1)
[2017-05-29] MEDS: PROPOFOL 100 ML IV SCH ×2 (04:51→23:11)
[2017-05-29] MEDS: FREE WATER GT SCH ×3 (06:00→12:14)
[2017-05-29] MEDS: methylPREDNISolone SOD SUCC 40 MG/ML VL IV SCH ×3 (06:00→21:59)
[2017-05-29] MEDS: PIPERACILLIN-TAZOB 3.375GM 50 ML IV SCH ×4 (06:00→23:50)
[2017-05-29] MEDS: ACETYLCYSTEINE 10 %(100MG/ML) SOL 4ML NEB SCH ×2 (06:35→18:28)
[2017-05-29] MEDS: SODIUM CHLOR 0.9% PF (SALINE LOCK) 10ML VIAL IV SCH ×2 (10:25→21:59)
[2017-05-29] MEDS: PANTOPRAZOLE 40 MG/10 ML VIAL IV SCH (10:25)
[2017-05-29] MEDS ORDERED: FUROSEMIDE 20 MG/2 ML VIAL ONE (12:20)
[2017-05-29] MEDS ORDERED: POTASSIUM CHL 10% (20 MEQ/15ML) 15ml ORAL SOLN PO ONE (12:30)
[2017-05-29] MEDS ORDERED: FUROSEMIDE 20 MG/2 ML VIAL IV ONE (12:30)
[2017-05-29] MEDS: LORAZEPAM MDV 2MG/ML 50 MG in SODIUM CHL 0.9% 25 ML IV SCH (14:19)
[2017-05-29 15:18] LABS: Basophils # (auto) 0 uL; Basophils % (auto) 0.2 % (0.0-2.0); Eosinophils # (auto) 0 uL; Hematocrit 30.8 % (41.0-53.0); Hemoglobin 9.9 g/dL (13.5-17.5); Lymphocytes # (auto) 0.5 uL; Lymphocytes % (auto) 2.1 % (10.0-50.0); Mean Corpuscular Hemoglobin 28.4 pg (28.0-32.0); Mean Corpuscular Hgb Conc. 32.2 g/dL (32.0-36.0); Mean Corpuscular Volume 88.3 fL (80.0-100.0); Monocytes # (auto) 0.9 uL; Monocytes % (auto) 4.1 % (0.0-12.0); Neutrophils # (auto) 20.8 uL; Neutrophils % (auto) 93.6 % (37.0-80.0); Nucleated Red Blood Cells % 0.2 %; Platelet Count (auto) 169 10^3/uL (140-450); Red Blood Cells 3.49 10^6/uL (4.5-5.90); Red Cell Distribution Width 14.1 % (11.8-14.3); White Blood Cell 22.3 10^3/uL (4.4-10.8)
[2017-05-29 15:25] LABS: Albumin 1.4 g/dL (3.4-5.0); BUN/Creatinine Ratio 47.5; Bilirubin, Total 0.8 mg/dL (0.2-1.0); Calcium 7.3 mg/dL (8.5-10.1); Potassium 5.3 mmol/L (3.5-5.1); Total Protein 6.2 g/dL (6.4-8.2)
[2017-05-29] MEDS: NOREPINEPHRINE 8 MG/250ML KIT 250 ML IV SCH (18:17)
[2017-05-29] MEDS: ACETAMINOPHEN 650 mg PER 20 mL UD PO PRN (21:59)
[2017-05-30] VITALS (101 sets, daily range): BP systolic 80–147; BP diastolic 31–94
[2017-05-30] MEDS: IPRATROPIUM BROM 0.5 MG/2.5ML INH SOL NEB SCH ×4 (00:20→18:44)
[2017-05-30] MEDS: ALBUTEROL SULF 2.5 MG/0.5ML(0.5%) NEB SOLN NEB SCH ×4 (00:21→18:44)
[2017-05-30] MEDS: VANCOMYCIN 1,250 MG in D5W 5% 250 ML IV SCH ×2 (02:10→14:06)
[2017-05-30] MEDS: ACETYLCYSTEINE 10 %(100MG/ML) SOL 4ML NEB SCH (05:21)
[2017-05-30] MEDS: PIPERACILLIN-TAZOB 3.375GM 50 ML IV SCH ×3 (06:07→18:28)
[2017-05-30 06:37] LABS: Albumin 1.4 g/dL (3.4-5.0); Calcium 7.6 mg/dL (8.5-10.1)
[2017-05-30 06:38] LABS: BUN/Creatinine Ratio 35.3
[2017-05-30 06:41] LABS: Bilirubin, Total 1.2 mg/dL (0.2-1.0); Total Protein 5.7 g/dL (6.4-8.2)
[2017-05-30 06:47] LABS: Potassium 5.8 mmol/L (3.5-5.1)
[2017-05-30] MEDS: fentaNYL Drip 2500mCg/250mlNS 250 ML IV SCH (06:52)
[2017-05-30] MEDS: MIDAZOLAM DRIP 50 mg/50mL 50 ML IV SCH ×2 (06:56→21:33)
[2017-05-30 06:59] LABS: Hematocrit 28.7 % (41.0-53.0); Hemoglobin 9.2 g/dL (13.5-17.5); Mean Corpuscular Hemoglobin 28.3 pg (28.0-32.0); Mean Corpuscular Hgb Conc. 32.1 g/dL (32.0-36.0); Mean Corpuscular Volume 88.3 fL (80.0-100.0); Platelet Count (auto) 171 10^3/uL (140-450); Red Blood Cells 3.25 10^6/uL (4.5-5.90); Red Cell Distribution Width 14.3 % (11.8-14.3); White Blood Cell 28.4 10^3/uL (4.4-10.8)
[2017-05-30 07:05] LABS: Basophils % (manual) 0 (0.0-2.0); Blast Cells 0; Eosinophils % (manual) 0 (0-7); Metamyelocytes % 0; Myelocytes % 0; Promyelocytes % 0; Reactive Lymphocytes 0
[2017-05-30] MEDS ORDERED: POTASSIUM CHL 10% (20 MEQ/15ML) 15ml ORAL SOLN PO SCH (10:00)
[2017-05-30] MEDS: methylPREDNISolone SOD SUCC 40 MG/ML VL IV SCH ×2 (10:13→21:33)
[2017-05-30] MEDS: SODIUM CHLOR 0.9% PF (SALINE LOCK) 10ML VIAL IV SCH ×2 (10:13→21:33)
[2017-05-30] MEDS: D5W/SOD CHL 0.45% 1,000 ML IV SCH (10:13)
[2017-05-30] MEDS: PANTOPRAZOLE 40 MG/10 ML VIAL IV SCH (10:13)
[2017-05-30] MEDS: FUROSEMIDE 20 MG/2 ML VIAL IV SCH (10:13)
[2017-05-30 12:11] LABS: Band Neutrophils % (manual) 3; Lymphocytes % (manual) 5 (10.0-50.0); Monocytes % (manual) 3 (0-12)
[2017-05-30] MEDS: LORAZEPAM MDV 2MG/ML 50 MG in SODIUM CHL 0.9% 25 ML IV SCH (14:27)
[2017-05-30 15:29] LABS: Albumin 1.4 g/dL (3.4-5.0); BUN/Creatinine Ratio 37.5; Bilirubin, Total 1.2 mg/dL (0.2-1.0); Calcium 7.4 mg/dL (8.5-10.1); Potassium 4.6 mmol/L (3.5-5.1); Total Protein 5.9 g/dL (6.4-8.2)
[2017-05-30] MEDS: NOREPINEPHRINE 8 MG/250ML KIT 250 ML IV SCH (18:17)
[2017-05-30] MEDS: PROPOFOL 100 ML IV SCH (20:20)
[2017-05-31] VITALS (106 sets, daily range): BP systolic 105–151; BP diastolic 42–91
[2017-05-31] MEDS: PIPERACILLIN-TAZOB 3.375GM 50 ML IV SCH ×4 (00:01→18:14)
[2017-05-31] MEDS: D5W/SOD CHL 0.45% 1,000 ML IV SCH ×2 (00:07→12:25)
[2017-05-31] MEDS: ACETYLCYSTEINE 10 %(100MG/ML) SOL 4ML NEB SCH (00:43)
[2017-05-31] MEDS: IPRATROPIUM BROM 0.5 MG/2.5ML INH SOL NEB SCH ×4 (00:43→18:41)
[2017-05-31] MEDS: ALBUTEROL SULF 2.5 MG/0.5ML(0.5%) NEB SOLN NEB SCH ×4 (00:43→18:41)
[2017-05-31] MEDS: fentaNYL Drip 2500mCg/250mlNS 250 ML IV SCH ×2 (01:48→22:00)
[2017-05-31] MEDS: MIDAZOLAM DRIP 50 mg/50mL 50 ML IV SCH ×3 (01:48→22:01)
[2017-05-31] MEDS: ACETAMINOPHEN 650 mg PER 20 mL UD PO PRN (02:00)
[2017-05-31 04:00] LABS: Basophils # (auto) 0 uL; Basophils % (auto) 0.2 % (0.0-2.0); Eosinophils # (auto) 0 uL; Hematocrit 26.6 % (41.0-53.0); Hemoglobin 8.9 g/dL (13.5-17.5); Lymphocytes # (auto) 0.8 uL; Lymphocytes % (auto) 5.7 % (10.0-50.0); Mean Corpuscular Hgb Conc. 33.3 g/dL (32.0-36.0); Mean Corpuscular Volume 87.1 fL (80.0-100.0); Monocytes # (auto) 0.8 uL; Monocytes % (auto) 5.3 % (0.0-12.0); Neutrophils % (auto) 88.8 % (37.0-80.0); Platelet Count (auto) 164 10^3/uL (140-450); Red Blood Cells 3.05 10^6/uL (4.5-5.90); Red Cell Distribution Width 13.6 % (11.8-14.3); White Blood Cell 14.7 10^3/uL (4.4-10.8)
[2017-05-31 04:11] LABS: Albumin 1.3 g/dL (3.4-5.0); BUN/Creatinine Ratio 36.8; Calcium 7.5 mg/dL (8.5-10.1); Potassium 4.1 mmol/L (3.5-5.1)
[2017-05-31 04:13] LABS: Bilirubin, Total 0.9 mg/dL (0.2-1.0); Total Protein 5.5 g/dL (6.4-8.2)
[2017-05-31] MEDS: PROPOFOL 100 ML IV SCH (05:00)
[2017-05-31] MEDS: SODIUM CHLOR 0.9% PF (SALINE LOCK) 10ML VIAL IV SCH ×2 (10:00→22:00)
[2017-05-31] MEDS: FUROSEMIDE 20 MG/2 ML VIAL IV SCH (10:30)
[2017-05-31] MEDS: PANTOPRAZOLE 40 MG/10 ML VIAL IV SCH (10:30)
[2017-05-31] MEDS: methylPREDNISolone SOD SUCC 40 MG/ML VL IV SCH ×2 (10:30→22:00)
[2017-05-31] MEDS: VANCOMYCIN 1,250 MG in D5W 5% 250 ML IV SCH ×2 (10:47→22:00)
[2017-05-31] MEDS: LORAZEPAM MDV 2MG/ML 50 MG in SODIUM CHL 0.9% 25 ML IV SCH (11:49)
[2017-05-31] MEDS: NOREPINEPHRINE 8 MG/250ML KIT 250 ML IV SCH (18:17)
[2017-05-31] MEDS: Novasource Renal 1 Liter GT SCH (22:02)
[2017-06-01] VITALS (95 sets, daily range): BP systolic 98–139; BP diastolic 38–87
[2017-06-01] MEDS: IPRATROPIUM BROM 0.5 MG/2.5ML INH SOL NEB SCH ×4 (00:40→18:30)
[2017-06-01] MEDS: ALBUTEROL SULF 2.5 MG/0.5ML(0.5%) NEB SOLN NEB SCH ×4 (00:40→18:30)
[2017-06-01] MEDS: D5W/SOD CHL 0.45% 1,000 ML IV SCH (01:45)
[2017-06-01 03:59] LABS: Hematocrit 25.4 % (41.0-53.0); Hemoglobin 8.5 g/dL (13.5-17.5); Mean Corpuscular Hemoglobin 29.4 pg (28.0-32.0); Mean Corpuscular Hgb Conc. 33.3 g/dL (32.0-36.0); Mean Corpuscular Volume 88.5 fL (80.0-100.0); Platelet Count (auto) 218 10^3/uL (140-450); Red Blood Cells 2.87 10^6/uL (4.5-5.90); Red Cell Distribution Width 13.3 % (11.8-14.3); White Blood Cell 11.6 10^3/uL (4.4-10.8)
[2017-06-01 04:19] LABS: Albumin 1.3 g/dL (3.4-5.0); BUN/Creatinine Ratio 45.3; Calcium 7.7 mg/dL (8.5-10.1); Potassium 3.9 mmol/L (3.5-5.1)
[2017-06-01] MEDS: PROPOFOL 100 ML IV SCH ×2 (04:24→14:19)
[2017-06-01] MEDS: fentaNYL Drip 2500mCg/250mlNS 250 ML IV SCH ×2 (04:24→14:18)
[2017-06-01 04:25] LABS: Bilirubin, Total 0.8 mg/dL (0.2-1.0); Total Protein 5.5 g/dL (6.4-8.2)
[2017-06-01] MEDS: MIDAZOLAM DRIP 50 mg/50mL 50 ML IV SCH ×3 (04:25→14:18)
[2017-06-01 04:32] LABS: Basophils % (manual) 0 (0.0-2.0); Blast Cells 0; Eosinophils % (manual) 0 (0-7); Metamyelocytes % 0; Myelocytes % 0; Promyelocytes % 0; Reactive Lymphocytes 0
[2017-06-01 05:10] LABS: Band Neutrophils % (manual) 1; Lymphocytes % (manual) 3 (10.0-50.0); Monocytes % (manual) 8 (0-12)
[2017-06-01] MEDS: PIPERACILLIN-TAZOB 3.375GM 50 ML IV SCH ×3 (05:33→13:00)
[2017-06-01] MEDS: methylPREDNISolone SOD SUCC 40 MG/ML VL IV SCH (09:45)
[2017-06-01] MEDS: SODIUM CHLOR 0.9% PF (SALINE LOCK) 10ML VIAL IV SCH ×2 (09:46→20:58)
[2017-06-01] MEDS: PANTOPRAZOLE 40 MG/10 ML VIAL IV SCH (09:46)
[2017-06-01] MEDS: FUROSEMIDE 20 MG/2 ML VIAL IV SCH (09:46)
[2017-06-01] MEDS: NS 0.9% IV SCH ×4 (10:00→21:05)
[2017-06-01] MEDS: NAFCILLIN SOD IV SCH ×4 (10:00→21:05)
[2017-06-01] MEDS: LACTULOSE 20Gm/30ML SOLN PO SCH ×3 (14:17→21:03)
[2017-06-01] MEDS: LORAZEPAM MDV 2MG/ML 50 MG in SODIUM CHL 0.9% 25 ML IV SCH (14:17)
[2017-06-01] MEDS: NOREPINEPHRINE 8 MG/250ML KIT 250 ML IV SCH (18:17)
[2017-06-01] MEDS: ALBUTEROL SULF 2.5 MG/0.5ML(0.5%) NEB SOLN NEB PRN (22:14)
[2017-06-02] VITALS (98 sets, daily range): BP systolic 98–150; BP diastolic 48–100
[2017-06-02] MEDS: MIDAZOLAM DRIP 50 mg/50mL 50 ML IV SCH ×3 (00:07→20:00)
[2017-06-02] MEDS: PROPOFOL 100 ML IV SCH ×4 (00:07→23:00)
[2017-06-02] MEDS: fentaNYL Drip 2500mCg/250mlNS 250 ML IV SCH (00:07)
[2017-06-02] MEDS: ALBUTEROL SULF 2.5 MG/0.5ML(0.5%) NEB SOLN NEB SCH ×4 (00:29→18:39)
[2017-06-02] MEDS: IPRATROPIUM BROM 0.5 MG/2.5ML INH SOL NEB SCH ×4 (00:29→18:39)
[2017-06-02] MEDS: NAFCILLIN SOD IV SCH ×6 (02:00→22:00)
[2017-06-02] MEDS: NS 0.9% IV SCH ×6 (02:00→22:00)
[2017-06-02] MEDS: LACTULOSE 20Gm/30ML SOLN PO SCH ×3 (02:00→10:00)
[2017-06-02 03:49] LABS: Hematocrit 32.9 % (41.0-53.0); Hemoglobin 10.6 g/dL (13.5-17.5); Mean Corpuscular Hemoglobin 28.3 pg (28.0-32.0); Mean Corpuscular Hgb Conc. 32.2 g/dL (32.0-36.0); Mean Corpuscular Volume 87.7 fL (80.0-100.0); Platelet Count (auto) 397 10^3/uL (140-450); Red Blood Cells 3.75 10^6/uL (4.5-5.90); Red Cell Distribution Width 13.8 % (11.8-14.3); White Blood Cell 15.1 10^3/uL (4.4-10.8)
[2017-06-02 04:08] LABS: Basophils % (manual) 0 (0.0-2.0); Blast Cells 0; Eosinophils % (manual) 0 (0-7); Metamyelocytes % 0; Myelocytes % 0; Promyelocytes % 0; Reactive Lymphocytes 0
[2017-06-02 04:11] LABS: Potassium 3.6 mmol/L (3.5-5.1)
[2017-06-02 04:16] LABS: Albumin 1.5 g/dL (3.4-5.0); Calcium 8.4 mg/dL (8.5-10.1)
[2017-06-02 04:33] LABS: Bilirubin, Total 1.1 mg/dL (0.2-1.0); Total Protein 6.4 g/dL (6.4-8.2)
[2017-06-02 05:14] LABS: Band Neutrophils % (manual) 9; Lymphocytes % (manual) 10 (10.0-50.0); Monocytes % (manual) 3 (0-12)
[2017-06-02] MEDS: LORAZEPAM MDV 2MG/ML 50 MG in SODIUM CHL 0.9% 25 ML IV SCH (06:21)
[2017-06-02] MEDS: SODIUM CHLOR 0.9% PF (SALINE LOCK) 10ML VIAL IV SCH (10:00)
[2017-06-02] MEDS: FUROSEMIDE 20 MG/2 ML VIAL IV SCH (10:48)
[2017-06-02] MEDS: PANTOPRAZOLE 40 MG/10 ML VIAL IV SCH (10:48)
[2017-06-02] MEDS ORDERED: ALBUTEROL SULF 2.5 MG/0.5ML(0.5%) NEB SOLN NEB PRN (12:30)
[2017-06-02] MEDS ORDERED: NITROGLYCERIN 0.4 MG SL TAB SL PRN (12:30)
[2017-06-02] MEDS ORDERED: LACTULOSE 20Gm/30ML SOLN PO PRN (12:30)
[2017-06-02 17:46] LABS: INR 1.1 (0.9-1.15)
[2017-06-03] VITALS (100 sets, daily range): BP systolic 87–162; BP diastolic 35–86
[2017-06-03] MEDS: MIDAZOLAM DRIP 50 mg/50mL 50 ML IV SCH ×5 (00:25→22:05)
[2017-06-03] MEDS: IPRATROPIUM BROM 0.5 MG/2.5ML INH SOL NEB SCH ×4 (00:33→18:08)
[2017-06-03] MEDS: ALBUTEROL SULF 2.5 MG/0.5ML(0.5%) NEB SOLN NEB SCH ×4 (00:33→18:08)
[2017-06-03] MEDS: NAFCILLIN SOD IV SCH ×3 (02:00→09:31)
[2017-06-03] MEDS: NS 0.9% IV SCH ×3 (02:00→09:31)
[2017-06-03] MEDS: SODIUM CHLOR 0.9% PF (SALINE LOCK) 10ML VIAL IV SCH ×3 (02:55→22:03)
[2017-06-03] MEDS: PROPOFOL 100 ML IV SCH ×4 (02:58→20:45)
[2017-06-03 03:38] LABS: Basophils # (auto) 0.1 uL; Basophils % (auto) 0.5 % (0.0-2.0); Eosinophils # (auto) 0.2 uL; Eosinophils % (auto) 0.9 % (0.0-7.0); Hematocrit 29.2 % (41.0-53.0); Hemoglobin 9.5 g/dL (13.5-17.5); Lymphocytes # (auto) 1.8 uL; Mean Corpuscular Hemoglobin 29.2 pg (28.0-32.0); Mean Corpuscular Hgb Conc. 32.4 g/dL (32.0-36.0); Mean Corpuscular Volume 90.2 fL (80.0-100.0); Monocytes # (auto) 1.3 uL; Monocytes % (auto) 7.5 % (0.0-12.0); Neutrophils # (auto) 14.3 uL; Neutrophils % (auto) 81.1 % (37.0-80.0); Platelet Count (auto) 381 10^3/uL (140-450); Red Blood Cells 3.24 10^6/uL (4.5-5.90); Red Cell Distribution Width 13.6 % (11.8-14.3); White Blood Cell 17.6 10^3/uL (4.4-10.8)
[2017-06-03 03:58] LABS: Albumin 1.4 g/dL (3.4-5.0); BUN/Creatinine Ratio 34.6; Calcium 7.8 mg/dL (8.5-10.1)
[2017-06-03 04:01] LABS: Bilirubin, Total 1.2 mg/dL (0.2-1.0); Potassium 2.7 mmol/L (3.5-5.1); Total Protein 5.8 g/dL (6.4-8.2)
[2017-06-03] MEDS ORDERED: SOD CHL 0.9%/ KCL 40MEQ 1,000 ML IV SCH (05:30)
[2017-06-03] MEDS: POTASSIUM CHL 20MEQ/100ML 100 ML IV ONE (06:15)
[2017-06-03] MEDS ORDERED: POTASSIUM CHL 20MEQ/100ML 100 ML IV ONE (06:23)
[2017-06-03] MEDS: PANTOPRAZOLE 40 MG/10 ML VIAL IV SCH (09:30)
[2017-06-03] MEDS: FUROSEMIDE 20 MG/2 ML VIAL IV SCH (10:00)
[2017-06-03] MEDS: NOREPINEPHRINE 8 MG/250ML KIT 250 ML IV SCH (11:08)
[2017-06-03 11:21] LABS: INR 1.15 (0.9-1.15); Partial Thromboplastin Time 24.6 sec (22.64-33.71); Prothrombin Time 12.6 sec (9.37-12.3)
[2017-06-03] MEDS: POTASSIUM CHL 20MEQ/100ML 100 ML IV SCH ×2 (12:40→14:29)
[2017-06-03] MEDS: fentaNYL Drip 2500mCg/250mlNS 250 ML IV SCH (12:40)
[2017-06-03] MEDS: LORAZEPAM MDV 2MG/ML 50 MG in SODIUM CHL 0.9% 25 ML IV SCH ×2 (12:41→14:17)
[2017-06-03] MEDS ORDERED: cefTRIAXone 1GM/10ml IVPUSH 10 ML IV ONE (13:30)
[2017-06-03] MEDS ORDERED: LORazepam 2MG/ML-1ML VIAL IV PRN (13:30)
[2017-06-03] MEDS ORDERED: LINEZOLID 600MG/300ML 300 ML IV ONE (14:15)
[2017-06-03] MEDS ORDERED: MIDAZOLAM HCL 1MG/1ML-2 ML VIAL ONE (14:31)
[2017-06-03] MEDS ORDERED: fentaNYL CITRATE 5 ML ONE (14:31)
[2017-06-03] MEDS ORDERED: ROCURONIUM 10MG/ML 10ML VIAL IV ONE (14:31)
[2017-06-03] MEDS: LINEZOLID 600MG/300ML 300 ML IV SCH (22:03)
[2017-06-03] MEDS: ACETAMINOPHEN 650 mg PER 20 mL UD PO PRN (23:37)
[2017-06-04] VITALS (100 sets, daily range): BP systolic 99–162; BP diastolic 37–91
[2017-06-04] MEDS: ALBUTEROL SULF 2.5 MG/0.5ML(0.5%) NEB SOLN NEB SCH ×4 (00:14→18:42)
[2017-06-04] MEDS: IPRATROPIUM BROM 0.5 MG/2.5ML INH SOL NEB SCH ×4 (00:14→18:42)
[2017-06-04 03:48] LABS: Basophils # (auto) 0 uL; Basophils % (auto) 0.3 % (0.0-2.0); Eosinophils % (auto) 0.9 % (0.0-7.0); Hemoglobin 8.7 g/dL (13.5-17.5); White Blood Cell 16.8 10^3/uL (4.4-10.8)
[2017-06-04 03:50] LABS: Eosinophils # (auto) 0.1 uL; Hematocrit 26.2 % (41.0-53.0); Lymphocytes # (auto) 1.9 uL; Lymphocytes % (auto) 11.4 % (10.0-50.0); Mean Corpuscular Hemoglobin 29.2 pg (28.0-32.0); Mean Corpuscular Hgb Conc. 33.3 g/dL (32.0-36.0); Mean Corpuscular Volume 87.9 fL (80.0-100.0); Monocytes # (auto) 1.1 uL; Monocytes % (auto) 6.3 % (0.0-12.0); Neutrophils # (auto) 13.7 uL; Neutrophils % (auto) 81.1 % (37.0-80.0); Platelet Count (auto) 459 10^3/uL (140-450); Red Blood Cells 2.98 10^6/uL (4.5-5.90); Red Cell Distribution Width 13.1 % (11.8-14.3)
[2017-06-04 04:10] LABS: Albumin 1.3 g/dL (3.4-5.0); Calcium 7.7 mg/dL (8.5-10.1)
[2017-06-04 04:12] LABS: BUN/Creatinine Ratio 22.4
[2017-06-04 04:13] LABS: Bilirubin, Total 0.7 mg/dL (0.2-1.0); Total Protein 5.9 g/dL (6.4-8.2)
[2017-06-04] MEDS: PROPOFOL 100 ML IV SCH ×4 (04:33→17:59)
[2017-06-04] MEDS: MIDAZOLAM DRIP 50 mg/50mL 50 ML IV SCH ×5 (04:33→21:58)
[2017-06-04 04:41] LABS: Potassium 2.9 mmol/L (3.5-5.1)
[2017-06-04] MEDS ORDERED: POTASSIUM CHL 20MEQ/100ML 100 ML IV ONE ×2 (05:15→07:35)
[2017-06-04] MEDS: NOREPINEPHRINE 8 MG/250ML KIT 250 ML IV SCH (08:51)
[2017-06-04] MEDS: cefTRIAXone 1GM/10ml IVPUSH 10 ML IV SCH (09:18)
[2017-06-04] MEDS: PANTOPRAZOLE 40 MG/10 ML VIAL IV SCH (09:48)
[2017-06-04] MEDS: SODIUM CHLOR 0.9% PF (SALINE LOCK) 10ML VIAL IV SCH ×2 (10:06→23:11)
[2017-06-04] MEDS: LINEZOLID 600MG/300ML 300 ML IV SCH ×2 (10:06→23:11)
[2017-06-04] MEDS: LORAZEPAM MDV 2MG/ML 50 MG in SODIUM CHL 0.9% 25 ML IV SCH (10:15)
[2017-06-04] MEDS: POTASSIUM CHL 20MEQ/100ML 100 ML IV SCH ×2 (12:36→14:31)
[2017-06-04] MEDS: fentaNYL Drip 2500mCg/250mlNS 250 ML IV SCH ×2 (12:38→21:57)
[2017-06-04] MEDS: Novasource Renal 1 Liter GT SCH (12:43)
[2017-06-04] MEDS: ACETAMINOPHEN 650 mg PER 20 mL UD PO PRN ×2 (15:35→21:58)
[2017-06-05] VITALS (96 sets, daily range): BP systolic 96–161; BP diastolic 37–99
[2017-06-05] MEDS: MIDAZOLAM DRIP 50 mg/50mL 50 ML IV SCH ×5 (00:09→21:12)
[2017-06-05] MEDS: IPRATROPIUM BROM 0.5 MG/2.5ML INH SOL NEB SCH ×4 (00:41→18:19)
[2017-06-05] MEDS: ALBUTEROL SULF 2.5 MG/0.5ML(0.5%) NEB SOLN NEB SCH ×4 (00:41→18:19)
[2017-06-05] MEDS: LORAZEPAM MDV 2MG/ML 50 MG in SODIUM CHL 0.9% 25 ML IV SCH (01:31)
[2017-06-05] MEDS: PROPOFOL 100 ML IV SCH ×5 (03:12→19:38)
[2017-06-05 03:51] LABS: Basophils # (auto) 0.2 uL; Basophils % (auto) 1.2 % (0.0-2.0); Eosinophils # (auto) 0.1 uL; Eosinophils % (auto) 0.8 % (0.0-7.0); Hematocrit 29.7 % (41.0-53.0); Hemoglobin 9.7 g/dL (13.5-17.5); Lymphocytes # (auto) 1.7 uL; Mean Corpuscular Hemoglobin 29.7 pg (28.0-32.0); Mean Corpuscular Hgb Conc. 32.7 g/dL (32.0-36.0); Mean Corpuscular Volume 90.9 fL (80.0-100.0); Monocytes # (auto) 1.3 uL; Monocytes % (auto) 8.8 % (0.0-12.0); Neutrophils # (auto) 11.7 uL; Neutrophils % (auto) 78.2 % (37.0-80.0); Nucleated Red Blood Cells % 0.1 %; Platelet Count (auto) 352 10^3/uL (140-450); Red Blood Cells 3.26 10^6/uL (4.5-5.90); Red Cell Distribution Width 13.8 % (11.8-14.3)
[2017-06-05 04:16] LABS: Calcium 7.8 mg/dL (8.5-10.1); Potassium 3.6 mmol/L (3.5-5.1)
[2017-06-05 04:19] LABS: BUN/Creatinine Ratio 17.3
[2017-06-05] MEDS: NOREPINEPHRINE 8 MG/250ML KIT 250 ML IV SCH (08:38)
[2017-06-05] MEDS: cefTRIAXone 1GM/10ml IVPUSH 10 ML IV SCH (09:00)
[2017-06-05] MEDS: fentaNYL Drip 2500mCg/250mlNS 250 ML IV SCH (09:34)
[2017-06-05] MEDS: SODIUM CHLOR 0.9% PF (SALINE LOCK) 10ML VIAL IV SCH ×2 (10:28→22:23)
[2017-06-05] MEDS: LINEZOLID 600MG/300ML 300 ML IV SCH ×2 (10:28→22:23)
[2017-06-05] MEDS: PANTOPRAZOLE 40 MG/10 ML VIAL IV SCH (10:28)
[2017-06-05] MEDS: MORPHINE SULFATE 4 MG/ML SYR/VIAL IV PRN (21:36)
[2017-06-05] MEDS: Novasource Renal 1 Liter GT SCH (23:00)
[2017-06-06] VITALS (103 sets, daily range): BP systolic 83–144; BP diastolic 39–89
[2017-06-06] MEDS: LORAZEPAM MDV 2MG/ML 50 MG in SODIUM CHL 0.9% 25 ML IV SCH ×3 (00:02→15:54)
[2017-06-06] MEDS: PROPOFOL 100 ML IV SCH ×5 (00:09→21:39)
[2017-06-06] MEDS: IPRATROPIUM BROM 0.5 MG/2.5ML INH SOL NEB SCH ×4 (00:10→18:50)
[2017-06-06] MEDS: ALBUTEROL SULF 2.5 MG/0.5ML(0.5%) NEB SOLN NEB SCH ×4 (00:10→18:50)
[2017-06-06] MEDS: MIDAZOLAM DRIP 50 mg/50mL 50 ML IV SCH ×5 (02:06→22:29)
[2017-06-06] MEDS: MORPHINE SULFATE 4 MG/ML SYR/VIAL IV PRN ×5 (02:11→21:42)
[2017-06-06 04:55] LABS: BUN/Creatinine Ratio 16.7; Calcium 7.5 mg/dL (8.5-10.1); White Blood Cell 17.4 10^3/uL (4.4-10.8)
[2017-06-06 04:57] LABS: Hematocrit 27.1 % (41.0-53.0); Hemoglobin 8.8 g/dL (13.5-17.5); Mean Corpuscular Hemoglobin 28.4 pg (28.0-32.0); Mean Corpuscular Hgb Conc. 32.5 g/dL (32.0-36.0); Mean Corpuscular Volume 87.4 fL (80.0-100.0); Platelet Count (auto) 529 10^3/uL (140-450); Red Cell Distribution Width 13.3 % (11.8-14.3)
[2017-06-06 04:58] LABS: Eosinophils % (manual) 0 (0-7)
[2017-06-06 04:59] LABS: Basophils % (manual) 0 (0.0-2.0); Blast Cells 0; Metamyelocytes % 0; Myelocytes % 0; Promyelocytes % 0; Reactive Lymphocytes 0
[2017-06-06 05:35] LABS: Potassium 2.9 mmol/L (3.5-5.1)
[2017-06-06] MEDS ORDERED: POTASSIUM CHL 10% (20 MEQ/15ML) 15ml ORAL SOLN GT ONE (06:30)
[2017-06-06] MEDS: NOREPINEPHRINE 8 MG/250ML KIT 250 ML IV SCH (07:54)
[2017-06-06] MEDS: cefTRIAXone 1GM/10ml IVPUSH 10 ML IV SCH (09:02)
[2017-06-06] MEDS: PANTOPRAZOLE 40 MG/10 ML VIAL IV SCH (10:20)
[2017-06-06] MEDS: SODIUM CHLOR 0.9% PF (SALINE LOCK) 10ML VIAL IV SCH ×2 (10:20→22:27)
[2017-06-06] MEDS: LINEZOLID 600MG/300ML 300 ML IV SCH ×2 (10:20→22:28)
[2017-06-06] MEDS: fentaNYL 100MCG/HR 100 MCG/HR PAT TD SCH (10:30)
[2017-06-06 10:40] LABS: Band Neutrophils % (manual) 2; Lymphocytes % (manual) 12 (10.0-50.0); Monocytes % (manual) 11 (0-12)
[2017-06-06] MEDS ORDERED: DIAZEPAM 5 MG/ML 2ML SYRG IV PRN ×2 (11:00)
[2017-06-06 12:04] LABS: Urine Bacteria NONE SEEN /hpf (None Seen); Urine Blood Negative /uL (Negative); Urine Specific Gravity 1.014 (1.001-1.035); Urine WBC 7 /hpf (0 - 3)
[2017-06-06] MEDS: fentaNYL Drip 2500mCg/250mlNS 250 ML IV SCH (12:33)
[2017-06-07] VITALS (108 sets, daily range): BP systolic 97–154; BP diastolic 40–102
[2017-06-07 00:32] LABS: BUN/Creatinine Ratio 17.5; Calcium 7.8 mg/dL (8.5-10.1)
[2017-06-07] MEDS: PROPOFOL 100 ML IV SCH ×5 (00:35→22:30)
[2017-06-07 00:42] LABS: Potassium 2.8 mmol/L (3.5-5.1)
[2017-06-07] MEDS: IPRATROPIUM BROM 0.5 MG/2.5ML INH SOL NEB SCH ×4 (00:45→18:27)
[2017-06-07] MEDS: ALBUTEROL SULF 2.5 MG/0.5ML(0.5%) NEB SOLN NEB SCH ×4 (00:45→18:27)
[2017-06-07] MEDS: POTASSIUM CHL 20MEQ/100ML 100 ML IV SCH ×3 (01:01→05:02)
[2017-06-07] MEDS: MIDAZOLAM DRIP 50 mg/50mL 50 ML IV SCH ×4 (02:28→21:58)
[2017-06-07] MEDS: LORAZEPAM MDV 2MG/ML 50 MG in SODIUM CHL 0.9% 25 ML IV SCH (04:33)
[2017-06-07] MEDS ORDERED: MORPHINE SULF INJ 2 MG/ML SYRINGE 1ML ONE (04:50)
[2017-06-07 04:52] LABS: Hemoglobin 9.1 g/dL (13.5-17.5)
[2017-06-07 04:55] LABS: Hematocrit 28.6 % (41.0-53.0); Mean Corpuscular Hemoglobin 28.8 pg (28.0-32.0); Mean Corpuscular Hgb Conc. 31.7 g/dL (32.0-36.0); Platelet Count (auto) 502 10^3/uL (140-450); Red Blood Cells 3.14 10^6/uL (4.5-5.90); Red Cell Distribution Width 13.6 % (11.8-14.3); White Blood Cell 16.1 10^3/uL (4.4-10.8)
[2017-06-07 04:58] LABS: Albumin 1.2 g/dL (3.4-5.0); BUN/Creatinine Ratio 17.4; Calcium 7.9 mg/dL (8.5-10.1); Potassium 3.6 mmol/L (3.5-5.1)
[2017-06-07 05:01] LABS: Bilirubin, Total 0.3 mg/dL (0.2-1.0)
[2017-06-07] MEDS: MORPHINE SULFATE 4 MG/ML SYR/VIAL IV PRN ×4 (05:01→22:27)
[2017-06-07 05:02] LABS: Lactic Acid w/Reflex 2.8 mmol/L (0.4-2.0)
[2017-06-07 05:19] LABS: Basophils % (manual) 0 (0.0-2.0); Blast Cells 0; Promyelocytes % 0; Reactive Lymphocytes 0
[2017-06-07 07:26] LABS: Band Neutrophils % (manual) 2; Eosinophils % (manual) 2 (0-7); Lymphocytes % (manual) 15 (10.0-50.0); Monocytes % (manual) 10 (0-12)
[2017-06-07 07:30] LABS: Metamyelocytes % 2; Myelocytes % 2
[2017-06-07] MEDS: NOREPINEPHRINE 8 MG/250ML KIT 250 ML IV SCH (08:51)
[2017-06-07] MEDS: fentaNYL Drip 2500mCg/250mlNS 250 ML IV SCH (09:30)
[2017-06-07] MEDS: SODIUM CHLOR 0.9% PF (SALINE LOCK) 10ML VIAL IV SCH ×2 (11:00→22:09)
[2017-06-07] MEDS: PANTOPRAZOLE 40 MG/10 ML VIAL IV SCH (11:00)
[2017-06-07] MEDS: LINEZOLID 600MG/300ML 300 ML IV SCH (11:00)
[2017-06-07] MEDS ORDERED: NAFCILLIN SOD 2GM 6 GM in SODIUM CHL 0.9% 500 ML IV SCH (12:05)
[2017-06-07] MEDS: NAFCILLIN SOD 2GM 6 GM in SODIUM CHL 0.9% 500 ML IV SCH (14:30)
[2017-06-07] MEDS ORDERED: HALOPERIDOL LACTATE 5 MG/ML INJ VIAL IM PRN (20:15)
[2017-06-08] VITALS (108 sets, daily range): BP systolic 95–152; BP diastolic 41–112
[2017-06-08] MEDS: ALBUTEROL SULF 2.5 MG/0.5ML(0.5%) NEB SOLN NEB SCH ×4 (00:16→18:59)
[2017-06-08] MEDS: IPRATROPIUM BROM 0.5 MG/2.5ML INH SOL NEB SCH ×4 (00:16→18:59)
[2017-06-08] MEDS: PROPOFOL 100 ML IV SCH ×6 (02:18→23:54)
[2017-06-08] MEDS: MIDAZOLAM DRIP 50 mg/50mL 50 ML IV SCH ×5 (02:19→21:57)
[2017-06-08] MEDS: NAFCILLIN SOD 2GM 6 GM in SODIUM CHL 0.9% 500 ML IV SCH (02:45)
[2017-06-08 06:53] LABS: Hematocrit 25.5 % (41.0-53.0); Hemoglobin 8.4 g/dL (13.5-17.5); Mean Corpuscular Hemoglobin 28.2 pg (28.0-32.0); Mean Corpuscular Hgb Conc. 33.2 g/dL (32.0-36.0); Mean Corpuscular Volume 85.1 fL (80.0-100.0); Platelet Count (auto) 493 10^3/uL (140-450); Red Blood Cells 2.99 10^6/uL (4.5-5.90); Red Cell Distribution Width 13.6 % (11.8-14.3); White Blood Cell 15.7 10^3/uL (4.4-10.8)
[2017-06-08 06:57] LABS: Basophils % (manual) 0 (0.0-2.0); Blast Cells 0; Metamyelocytes % 0; Myelocytes % 0; Promyelocytes % 0; Reactive Lymphocytes 0
[2017-06-08 07:07] LABS: INR 1.01 (0.9-1.15); Partial Thromboplastin Time 26.4 sec (22.64-33.71)
[2017-06-08 07:10] LABS: Calcium 7.8 mg/dL (8.5-10.1)
[2017-06-08 07:20] LABS: Potassium 2.9 mmol/L (3.5-5.1)
[2017-06-08 07:25] LABS: Band Neutrophils % (manual) 6; Eosinophils % (manual) 2 (0-7); Lymphocytes % (manual) 7 (10.0-50.0); Monocytes % (manual) 8 (0-12)
[2017-06-08] MEDS: NOREPINEPHRINE 8 MG/250ML KIT 250 ML IV SCH (08:51)
[2017-06-08] MEDS: MORPHINE SULFATE 4 MG/ML SYR/VIAL IV PRN ×5 (09:01→23:11)
[2017-06-08] MEDS: SODIUM CHLOR 0.9% PF (SALINE LOCK) 10ML VIAL IV SCH ×2 (09:01→22:05)
[2017-06-08] MEDS: PANTOPRAZOLE 40 MG/10 ML VIAL IV SCH (09:01)
[2017-06-08] MEDS: POTASSIUM CHL 20MEQ/100ML 100 ML IV SCH ×2 (11:28→12:46)
[2017-06-08] MEDS ORDERED: MORPHINE SULFATE 4 MG/ML SYR/VIAL IV PRN (13:00)
[2017-06-08] MEDS: fentaNYL Drip 2500mCg/250mlNS 250 ML IV SCH (13:06)
[2017-06-08] MEDS ORDERED: cefTAZidime 1 GM in SODIUM CHL 0.9% 50 ML IV SCH (14:00)
[2017-06-08] MEDS: LORAZEPAM MDV 2MG/ML 50 MG in SODIUM CHL 0.9% 25 ML IV SCH (14:56)
[2017-06-08] MEDS: LINEZOLID 600MG/300ML 300 ML IV SCH (21:06)
[2017-06-08] MEDS: cefTAZidime 1 GM in SODIUM CHL 0.9% 50 ML IV SCH (23:00)
[2017-06-09] VITALS (107 sets, daily range): BP systolic 95–172; BP diastolic 39–108
[2017-06-09] MEDS: ALBUTEROL SULF 2.5 MG/0.5ML(0.5%) NEB SOLN NEB SCH ×4 (00:23→19:05)
[2017-06-09] MEDS: IPRATROPIUM BROM 0.5 MG/2.5ML INH SOL NEB SCH ×4 (00:23→19:05)
[2017-06-09] MEDS: MIDAZOLAM DRIP 50 mg/50mL 50 ML IV SCH ×5 (02:26→23:25)
[2017-06-09] MEDS: MORPHINE SULFATE 4 MG/ML SYR/VIAL IV PRN ×6 (02:45→21:42)
[2017-06-09 03:58] LABS: Hematocrit 25.9 % (41.0-53.0); Hemoglobin 8.5 g/dL (13.5-17.5); Mean Corpuscular Hemoglobin 28.3 pg (28.0-32.0); Mean Corpuscular Hgb Conc. 32.8 g/dL (32.0-36.0); Mean Corpuscular Volume 86.3 fL (80.0-100.0); Platelet Count (auto) 489 10^3/uL (140-450); Red Cell Distribution Width 13.6 % (11.8-14.3); White Blood Cell 15.3 10^3/uL (4.4-10.8)
[2017-06-09 04:13] LABS: Calcium 8.3 mg/dL (8.5-10.1); Potassium 3.3 mmol/L (3.5-5.1)
[2017-06-09 04:17] LABS: BUN/Creatinine Ratio 14.6; Basophils % (manual) 0 (0.0-2.0); Blast Cells 0; Magnesium 2.2 mg/dL (1.6-2.6); Reactive Lymphocytes 0
[2017-06-09] MEDS: PROPOFOL 100 ML IV SCH ×4 (04:26→22:38)
[2017-06-09] MEDS ORDERED: POTASSIUM CHL 10% (20 MEQ/15ML) 15ml ORAL SOLN GT ONE (05:15)
[2017-06-09 05:16] LABS: Band Neutrophils % (manual) 2; Eosinophils % (manual) 2 (0-7); Lymphocytes % (manual) 9 (10.0-50.0); Metamyelocytes % 2; Monocytes % (manual) 10 (0-12); Myelocytes % 2; Promyelocytes % 1
[2017-06-09] MEDS: cefTAZidime 1 GM in SODIUM CHL 0.9% 50 ML IV SCH ×3 (05:52→22:06)
[2017-06-09] MEDS: NOREPINEPHRINE 8 MG/250ML KIT 250 ML IV SCH (08:51)
[2017-06-09] MEDS: SODIUM CHLOR 0.9% PF (SALINE LOCK) 10ML VIAL IV SCH ×2 (09:22→22:07)
[2017-06-09] MEDS: LINEZOLID 600MG/300ML 300 ML IV SCH ×2 (09:22→23:27)
[2017-06-09] MEDS: PANTOPRAZOLE 40 MG/10 ML VIAL IV SCH (09:22)
[2017-06-09] MEDS: fentaNYL 100MCG/HR 100 MCG/HR PAT TD SCH (09:54)
[2017-06-09] MEDS ORDERED: POTASSIUM CHL 10% (20 MEQ/15ML) 15ml ORAL SOLN PO ONE (12:30)
[2017-06-09] MEDS: fentaNYL Drip 2500mCg/250mlNS 250 ML IV SCH (13:06)
[2017-06-09] MEDS: SODIUM CHL 0.9% IV SCH ×2 (13:38→20:18)
[2017-06-09] MEDS: CISATRACURIUM BESYLATE IV SCH ×2 (13:38→20:18)
[2017-06-09] MEDS: LORAZEPAM MDV 2MG/ML 50 MG in SODIUM CHL 0.9% 25 ML IV SCH (16:38)
[2017-06-09] MEDS: Novasource Renal 1 Liter GT SCH (22:39)
[2017-06-10] VITALS (101 sets, daily range): BP systolic 94–168; BP diastolic 41–88
[2017-06-10] MEDS: MORPHINE SULFATE 4 MG/ML SYR/VIAL IV PRN (00:37)
[2017-06-10] MEDS: IPRATROPIUM BROM 0.5 MG/2.5ML INH SOL NEB SCH ×4 (00:41→18:29)
[2017-06-10] MEDS: ALBUTEROL SULF 2.5 MG/0.5ML(0.5%) NEB SOLN NEB SCH ×4 (00:41→18:29)
[2017-06-10] MEDS: PROPOFOL 100 ML IV SCH ×5 (02:35→21:15)
[2017-06-10] MEDS: MIDAZOLAM DRIP 50 mg/50mL 50 ML IV SCH ×5 (03:49→23:17)
[2017-06-10] MEDS: ATRACURIUM BESYLATE 1,000 MG in D5W 5% 150 ML IV SCH (04:09)
[2017-06-10 04:20] LABS: Hematocrit 22.2 % (41.0-53.0); Hemoglobin 7.5 g/dL (13.5-17.5); Mean Corpuscular Hgb Conc. 33.9 g/dL (32.0-36.0); Mean Corpuscular Volume 88.3 fL (80.0-100.0); Platelet Count (auto) 398 10^3/uL (140-450); Red Blood Cells 2.51 10^6/uL (4.5-5.90); White Blood Cell 18.7 10^3/uL (4.4-10.8)
[2017-06-10 04:23] LABS: BUN/Creatinine Ratio 12.5; Calcium 8.3 mg/dL (8.5-10.1); Potassium 3.5 mmol/L (3.5-5.1)
[2017-06-10 04:38] LABS: Blast Cells 0; Promyelocytes % 0; Reactive Lymphocytes 0
[2017-06-10 05:15] LABS: Band Neutrophils % (manual) 9; Basophils % (manual) 1 (0.0-2.0); Eosinophils % (manual) 2 (0-7); Lymphocytes % (manual) 7 (10.0-50.0); Metamyelocytes % 2; Monocytes % (manual) 11 (0-12); Myelocytes % 3
[2017-06-10] MEDS: cefTAZidime 1 GM in SODIUM CHL 0.9% 50 ML IV SCH ×3 (06:21→21:39)
[2017-06-10] MEDS: LINEZOLID 600MG/300ML 300 ML IV SCH ×2 (10:10→23:30)
[2017-06-10] MEDS: PANTOPRAZOLE 40 MG/10 ML VIAL IV SCH (10:10)
[2017-06-10] MEDS: SODIUM CHLOR 0.9% PF (SALINE LOCK) 10ML VIAL IV SCH ×2 (10:10→21:39)
[2017-06-10] MEDS: ACETAMINOPHEN 650 mg PER 20 mL UD PO PRN ×2 (10:52→16:15)
[2017-06-10] MEDS ORDERED: FUROSEMIDE 20 MG/2 ML VIAL IV ONE (12:45)
[2017-06-10] MEDS ORDERED: ENOXAPARIN SOD 40 MG/0.4 ML SYRINGE SC ONE (12:45)
[2017-06-10 12:47] LABS: Basophils # (auto) 0.1 uL; Basophils % (auto) 0.4 % (0.0-2.0); Eosinophils # (auto) 0.4 uL; Eosinophils % (auto) 2.4 % (0.0-7.0); Hemoglobin 7.8 g/dL (13.5-17.5); Lymphocytes # (auto) 1.4 uL; Lymphocytes % (auto) 9.7 % (10.0-50.0); Mean Corpuscular Hemoglobin 28.1 pg (28.0-32.0); Mean Corpuscular Hgb Conc. 32.6 g/dL (32.0-36.0); Mean Corpuscular Volume 86.3 fL (80.0-100.0); Monocytes # (auto) 1.4 uL; Monocytes % (auto) 9.5 % (0.0-12.0); Neutrophils # (auto) 11.6 uL; Nucleated Red Blood Cells % 0.1 %; Platelet Count (auto) 402 10^3/uL (140-450); Red Blood Cells 2.78 10^6/uL (4.5-5.90); White Blood Cell 14.9 10^3/uL (4.4-10.8)
[2017-06-11] VITALS (106 sets, daily range): BP systolic 113–163; BP diastolic 51–95
[2017-06-11] MEDS: ALBUTEROL SULF 2.5 MG/0.5ML(0.5%) NEB SOLN NEB SCH ×4 (00:20→19:38)
[2017-06-11] MEDS: IPRATROPIUM BROM 0.5 MG/2.5ML INH SOL NEB SCH ×4 (00:20→19:37)
[2017-06-11] MEDS: ATRACURIUM BESYLATE 1,000 MG in D5W 5% 150 ML IV SCH (00:54)
[2017-06-11] MEDS: PROPOFOL 100 ML IV SCH ×2 (02:36→11:00)
[2017-06-11 03:39] LABS: Hematocrit 24.6 % (41.0-53.0); Hemoglobin 8.2 g/dL (13.5-17.5); Mean Corpuscular Hemoglobin 28.5 pg (28.0-32.0); Mean Corpuscular Hgb Conc. 33.5 g/dL (32.0-36.0); Platelet Count (auto) 367 10^3/uL (140-450); Red Blood Cells 2.89 10^6/uL (4.5-5.90); Red Cell Distribution Width 13.5 % (11.8-14.3); White Blood Cell 20.5 10^3/uL (4.4-10.8)
[2017-06-11 03:50] LABS: Calcium 8.4 mg/dL (8.5-10.1)
[2017-06-11 03:52] LABS: BUN/Creatinine Ratio 14.3
[2017-06-11 03:54] LABS: Basophils % (manual) 0 (0.0-2.0); Blast Cells 0; Eosinophils % (manual) 0 (0-7); Promyelocytes % 0; Reactive Lymphocytes 0
[2017-06-11 04:56] LABS: Band Neutrophils % (manual) 8; Lymphocytes % (manual) 9 (10.0-50.0); Metamyelocytes % 5; Monocytes % (manual) 11 (0-12); Myelocytes % 2
[2017-06-11] MEDS: cefTAZidime 1 GM in SODIUM CHL 0.9% 50 ML IV SCH ×3 (05:30→21:05)
[2017-06-11] MEDS: POTASSIUM CHL 20MEQ/100ML 100 ML IV SCH ×4 (06:50→14:45)
[2017-06-11] MEDS: MIDAZOLAM DRIP 50 mg/50mL 50 ML IV SCH ×2 (08:30→21:38)
[2017-06-11] MEDS: SODIUM CHLOR 0.9% PF (SALINE LOCK) 10ML VIAL IV SCH ×2 (10:00→21:39)
[2017-06-11] MEDS: PANTOPRAZOLE 40 MG/10 ML VIAL IV SCH (10:00)
[2017-06-11] MEDS: LINEZOLID 600MG/300ML 300 ML IV SCH ×2 (10:00→23:00)
[2017-06-11] MEDS: ENOXAPARIN SOD 40 MG/0.4 ML SYRINGE SC SCH (10:00)
[2017-06-11] MEDS ORDERED: metroNIDAZOLE 500MG/100ML 100 ML IV SCH (14:00)
[2017-06-11 19:29] LABS: INR 1.04 (0.9-1.15); Partial Thromboplastin Time 27.9 sec (22.64-33.71); Prothrombin Time 11.3 sec (9.37-12.3)
[2017-06-12] VITALS (97 sets, daily range): BP systolic 110–157; BP diastolic 58–93
[2017-06-12] MEDS: metroNIDAZOLE 500MG/100ML 100 ML IV SCH ×3 (01:00→17:43)
[2017-06-12] MEDS: MIDAZOLAM DRIP 50 mg/50mL 50 ML IV SCH ×3 (02:28→23:46)
[2017-06-12] MEDS: ATRACURIUM BESYLATE 1,000 MG in D5W 5% 150 ML IV SCH (04:00)
[2017-06-12 04:16] LABS: Albumin 1.4 g/dL (3.4-5.0); BUN/Creatinine Ratio 13.2; Calcium 8.3 mg/dL (8.5-10.1)
[2017-06-12] MEDS: MORPHINE SULFATE 4 MG/ML SYR/VIAL IV PRN ×3 (04:17→22:10)
[2017-06-12 04:27] LABS: Bilirubin, Total 0.4 mg/dL (0.2-1.0); Total Protein 6.6 g/dL (6.4-8.2)
[2017-06-12 04:31] LABS: Potassium 2.8 mmol/L (3.5-5.1)
[2017-06-12] MEDS: cefTAZidime 1 GM in SODIUM CHL 0.9% 50 ML IV SCH ×3 (04:44→20:31)
[2017-06-12] MEDS ORDERED: POTASSIUM CHL 20MEQ/100ML 200 ML IV ONE (05:40)
[2017-06-12] MEDS: POTASSIUM CHL 20MEQ/100ML 100 ML IV SCH ×2 (05:45→06:48)
[2017-06-12] MEDS ORDERED: SOD CHL 0.9%/ KCL 40MEQ 1,000 ML IV ONE ×2 (05:45→05:47)
[2017-06-12] MEDS: IPRATROPIUM BROM 0.5 MG/2.5ML INH SOL NEB SCH ×4 (05:46→18:26)
[2017-06-12] MEDS: ALBUTEROL SULF 2.5 MG/0.5ML(0.5%) NEB SOLN NEB SCH ×4 (05:46→18:26)
[2017-06-12 06:33] LABS: Basophils # (auto) 0.1 uL; Basophils % (auto) 0.7 % (0.0-2.0); Eosinophils # (auto) 0.3 uL; Eosinophils % (auto) 2.1 % (0.0-7.0); Hematocrit 24.2 % (41.0-53.0); Hemoglobin 7.9 g/dL (13.5-17.5); Lymphocytes # (auto) 1.3 uL; Lymphocytes % (auto) 10.3 % (10.0-50.0); Mean Corpuscular Hemoglobin 27.9 pg (28.0-32.0); Mean Corpuscular Hgb Conc. 32.8 g/dL (32.0-36.0); Mean Corpuscular Volume 85.2 fL (80.0-100.0); Monocytes # (auto) 1.2 uL; Monocytes % (auto) 9.3 % (0.0-12.0); Neutrophils # (auto) 9.8 uL; Neutrophils % (auto) 77.6 % (37.0-80.0); Nucleated Red Blood Cells % 0.1 %; Platelet Count (auto) 314 10^3/uL (140-450); Red Blood Cells 2.85 10^6/uL (4.5-5.90); Red Cell Distribution Width 13.8 % (11.8-14.3); White Blood Cell 12.6 10^3/uL (4.4-10.8)
[2017-06-12] MEDS ORDERED: POVIDONE IODINE 10 % TOPICAL OINT 30GM TOP ONE (07:13)
[2017-06-12] MEDS ORDERED: MIDAZOLAM HCL 1MG/1ML-2 ML VIAL ONE (07:52)
[2017-06-12] MEDS ORDERED: MORPHINE SULFATE INJECTION 1 ML ONE (07:52)
[2017-06-12] MEDS ORDERED: fentaNYL CITRATE 100 MCG/2 ML VL ONE ×2 (07:52→09:37)
[2017-06-12] MEDS ORDERED: ROCURONIUM 10MG/ML 10ML VIAL IV ONE (07:52)
[2017-06-12] MEDS: ENOXAPARIN SOD 40 MG/0.4 ML SYRINGE SC SCH (09:42)
[2017-06-12] MEDS: PANTOPRAZOLE 40 MG/10 ML VIAL IV SCH (10:00)
[2017-06-12] MEDS ORDERED: MORPHINE SULF(PF) 0.5MG/ML 10ML VIAL ONE (10:31)
[2017-06-12] MEDS: LINEZOLID 600MG/300ML 300 ML IV SCH ×2 (12:00→22:59)
[2017-06-12] MEDS: SODIUM CHLOR 0.9% PF (SALINE LOCK) 10ML VIAL IV SCH ×2 (13:26→22:00)
[2017-06-12] MEDS: fentaNYL 100MCG/HR 100 MCG/HR PAT TD SCH (13:56)
[2017-06-12] MEDS: PROPOFOL 100 ML IV SCH ×2 (13:58→23:46)
[2017-06-13] VITALS (110 sets, daily range): BP systolic 109–154; BP diastolic 63–101
[2017-06-13] MEDS: ALBUTEROL SULF 2.5 MG/0.5ML(0.5%) NEB SOLN NEB SCH ×4 (00:14→18:52)
[2017-06-13] MEDS: IPRATROPIUM BROM 0.5 MG/2.5ML INH SOL NEB SCH ×4 (00:15→18:52)
[2017-06-13] MEDS: metroNIDAZOLE 500MG/100ML 100 ML IV SCH ×3 (01:00→15:52)
[2017-06-13] MEDS: ATRACURIUM BESYLATE 1,000 MG in D5W 5% 150 ML IV SCH ×2 (02:58→18:03)
[2017-06-13] MEDS: PROPOFOL 100 ML IV SCH ×5 (03:07→19:06)
[2017-06-13 04:11] LABS: Hematocrit 20.1 % (41.0-53.0); Mean Corpuscular Hemoglobin 28.1 pg (28.0-32.0); Red Cell Distribution Width 13.7 % (11.8-14.3)
[2017-06-13 04:13] LABS: Mean Corpuscular Hgb Conc. 33.6 g/dL (32.0-36.0); Mean Corpuscular Volume 83.7 fL (80.0-100.0); White Blood Cell 15.6 10^3/uL (4.4-10.8)
[2017-06-13 04:16] LABS: Platelet Count (auto) 263 10^3/uL (140-450)
[2017-06-13 04:17] LABS: Hemoglobin 6.8 g/dL (13.5-17.5)
[2017-06-13 04:18] LABS: Basophils % (manual) 0 (0.0-2.0); Blast Cells 0; Promyelocytes % 0; Reactive Lymphocytes 0
[2017-06-13 04:24] LABS: Calcium 7.4 mg/dL (8.5-10.1); Potassium 3.2 mmol/L (3.5-5.1)
[2017-06-13 04:26] LABS: BUN/Creatinine Ratio 15.6
[2017-06-13] MEDS: cefTAZidime 1 GM in SODIUM CHL 0.9% 50 ML IV SCH ×3 (04:29→21:29)
[2017-06-13] MEDS: MIDAZOLAM DRIP 50 mg/50mL 50 ML IV SCH ×5 (04:29→19:06)
[2017-06-13 04:52] LABS: Band Neutrophils % (manual) 2; Eosinophils % (manual) 2 (0-7); Lymphocytes % (manual) 8 (10.0-50.0); Metamyelocytes % 2; Monocytes % (manual) 4 (0-12); Myelocytes % 2
[2017-06-13] MEDS ORDERED: POTASSIUM CHL 20MEQ/100ML 100 ML IV ONE (05:00)
[2017-06-13] MEDS: MORPHINE SULFATE 4 MG/ML SYR/VIAL IV PRN ×3 (06:05→16:03)
[2017-06-13] MEDS ORDERED: D5W/SOD CHL 0.45%/KCL 40MEQ 1,000 ML IV SCH (06:30)
[2017-06-13] MEDS: PANTOPRAZOLE 40 MG/10 ML VIAL IV SCH (09:37)
[2017-06-13] MEDS: SODIUM CHLOR 0.9% PF (SALINE LOCK) 10ML VIAL IV SCH ×2 (09:37→21:29)
[2017-06-13] MEDS: LINEZOLID 600MG/300ML 300 ML IV SCH ×2 (09:37→22:03)
[2017-06-13] MEDS: ENOXAPARIN SOD 40 MG/0.4 ML SYRINGE SC SCH (10:00)
[2017-06-13] MEDS ORDERED: DIAZEPAM 5 MG/ML 2ML SYRG IV PRN ×2 (12:45)
[2017-06-13 13:05] LABS: Hematocrit 25.2 % (41.0-53.0); Hemoglobin 8.6 g/dL (13.5-17.5)
[2017-06-13] MEDS ORDERED: METOCLOPRAMIDE HCL 5MG/ml INJ 2ml VIAL IV SCH (14:00)
[2017-06-13] MEDS ORDERED: METOCLOPRAMIDE HCL 10 MG TAB PO PRN (14:00)
[2017-06-13] MEDS ORDERED: POTASSIUM CHL 10% (20 MEQ/15ML) 15ml ORAL SOLN PO ONE (16:00)
[2017-06-13] MEDS ORDERED: ATRACURIUM BESYLATE 1,000 MG in D5W 5% 150 ML IV SCH (16:15)
[2017-06-14] VITALS (108 sets, daily range): BP systolic 102–154; BP diastolic 7–100
[2017-06-14] MEDS: PROPOFOL 100 ML IV SCH ×7 (00:01→22:50)
[2017-06-14] MEDS: MIDAZOLAM DRIP 50 mg/50mL 50 ML IV SCH ×5 (00:01→20:39)
[2017-06-14] MEDS: ALBUTEROL SULF 2.5 MG/0.5ML(0.5%) NEB SOLN NEB SCH ×4 (00:25→18:32)
[2017-06-14] MEDS: IPRATROPIUM BROM 0.5 MG/2.5ML INH SOL NEB SCH ×4 (00:25→18:32)
[2017-06-14] MEDS: metroNIDAZOLE 500MG/100ML 100 ML IV SCH ×3 (00:30→16:00)
[2017-06-14] MEDS: cefTAZidime 1 GM in SODIUM CHL 0.9% 50 ML IV SCH ×3 (05:00→20:38)
[2017-06-14 05:34] LABS: Basophils # (auto) 0.1 uL; Eosinophils # (auto) 0.5 uL; Eosinophils % (auto) 3.6 % (0.0-7.0); Hematocrit 26.3 % (41.0-53.0); Hemoglobin 8.9 g/dL (13.5-17.5); Lymphocytes # (auto) 1.6 uL; Lymphocytes % (auto) 11.9 % (10.0-50.0); Mean Corpuscular Hemoglobin 28.3 pg (28.0-32.0); Mean Corpuscular Hgb Conc. 33.8 g/dL (32.0-36.0); Mean Corpuscular Volume 83.8 fL (80.0-100.0); Monocytes # (auto) 1.1 uL; Monocytes % (auto) 8.5 % (0.0-12.0); Neutrophils # (auto) 9.8 uL; Nucleated Red Blood Cells % 0.1 %; Platelet Count (auto) 235 10^3/uL (140-450); Red Blood Cells 3.14 10^6/uL (4.5-5.90); Red Cell Distribution Width 13.6 % (11.8-14.3); White Blood Cell 13.1 10^3/uL (4.4-10.8)
[2017-06-14 05:43] LABS: Calcium 7.5 mg/dL (8.5-10.1); Potassium 3.5 mmol/L (3.5-5.1)
[2017-06-14] MEDS: MORPHINE SULFATE 4 MG/ML SYR/VIAL IV PRN ×2 (07:27→15:04)
[2017-06-14] MEDS: ENOXAPARIN SOD 40 MG/0.4 ML SYRINGE SC SCH (10:05)
[2017-06-14] MEDS: SODIUM CHLOR 0.9% PF (SALINE LOCK) 10ML VIAL IV SCH ×2 (10:05→22:00)
[2017-06-14] MEDS: PANTOPRAZOLE 40 MG/10 ML VIAL IV SCH (10:06)
[2017-06-14] MEDS: LINEZOLID 600MG/300ML 300 ML IV SCH ×2 (10:06→22:49)
[2017-06-14] MEDS: ATRACURIUM BESYLATE 1,000 MG in D5W 5% 150 ML IV SCH (10:58)
[2017-06-15] VITALS (100 sets, daily range): BP systolic 94–159; BP diastolic 46–104
[2017-06-15] MEDS: metroNIDAZOLE 500MG/100ML 100 ML IV SCH ×3 (00:05→15:39)
[2017-06-15] MEDS: MIDAZOLAM DRIP 50 mg/50mL 50 ML IV SCH ×5 (00:05→16:33)
[2017-06-15] MEDS: ATRACURIUM BESYLATE 1,000 MG in D5W 5% 150 ML IV SCH (00:43)
[2017-06-15] MEDS: MORPHINE SULFATE 4 MG/ML SYR/VIAL IV PRN (01:34)
[2017-06-15] MEDS: PROPOFOL 100 ML IV SCH ×5 (03:28→19:32)
[2017-06-15 04:24] LABS: Hematocrit 30.2 % (41.0-53.0); Hemoglobin 10.1 g/dL (13.5-17.5); Mean Corpuscular Hemoglobin 28.5 pg (28.0-32.0); Mean Corpuscular Hgb Conc. 33.4 g/dL (32.0-36.0); Mean Corpuscular Volume 85.2 fL (80.0-100.0); Platelet Count (auto) 199 10^3/uL (140-450); Red Blood Cells 3.54 10^6/uL (4.5-5.90); Red Cell Distribution Width 14.3 % (11.8-14.3)
[2017-06-15 04:29] LABS: Basophils % (manual) 0 (0.0-2.0); Eosinophils % (manual) 0 (0-7)
[2017-06-15 04:30] LABS: Blast Cells 0; Promyelocytes % 0; Reactive Lymphocytes 0
[2017-06-15] MEDS: cefTAZidime 1 GM in SODIUM CHL 0.9% 50 ML IV SCH ×3 (04:50→21:00)
[2017-06-15 05:08] LABS: Band Neutrophils % (manual) 4; Lymphocytes % (manual) 11 (10.0-50.0); Metamyelocytes % 1; Monocytes % (manual) 4 (0-12); Myelocytes % 1
[2017-06-15] MEDS: ALBUTEROL SULF 2.5 MG/0.5ML(0.5%) NEB SOLN NEB SCH ×4 (06:34→18:14)
[2017-06-15] MEDS: IPRATROPIUM BROM 0.5 MG/2.5ML INH SOL NEB SCH ×4 (06:35→18:14)
[2017-06-15] MEDS: LORazepam 2MG/ML-1ML VIAL IV PRN (08:25)
[2017-06-15] MEDS: LINEZOLID 600MG/300ML 300 ML IV SCH ×2 (09:49→22:00)
[2017-06-15] MEDS: SODIUM CHLOR 0.9% PF (SALINE LOCK) 10ML VIAL IV SCH ×2 (09:49→22:00)
[2017-06-15] MEDS: PANTOPRAZOLE 40 MG/10 ML VIAL IV SCH (09:49)
[2017-06-15] MEDS: ENOXAPARIN SOD 40 MG/0.4 ML SYRINGE SC SCH (09:49)
[2017-06-15] MEDS: fentaNYL 100MCG/HR 100 MCG/HR PAT TD SCH (10:00)
[2017-06-15 10:12] LABS: Albumin 1.3 g/dL (3.4-5.0); BUN/Creatinine Ratio 16.7; Bilirubin, Total 0.6 mg/dL (0.2-1.0); Calcium 7.5 mg/dL (8.5-10.1)
[2017-06-15 10:14] LABS: Potassium 2.9 mmol/L (3.5-5.1)
[2017-06-15] MEDS ORDERED: POTASSIUM CHL 10% (20 MEQ/15ML) 15ml ORAL SOLN PO ONE (10:30)
[2017-06-15] MEDS ORDERED: POTASSIUM CHL 20MEQ/100ML 100 ML IV ONE (10:46)
[2017-06-15] MEDS ORDERED: POTASSIUM CHL 10% (20 MEQ/15ML) 15ml ORAL SOLN ONE (10:46)
[2017-06-15] MEDS: POTASSIUM CHL 20MEQ/100ML 100 ML IV SCH ×2 (11:32→13:53)
[2017-06-15] MEDS ORDERED: LACTULOSE 20Gm/30ML SOLN PO PRN (12:00)
[2017-06-15] MEDS ORDERED: ALBUTEROL SULF 2.5 MG/0.5ML(0.5%) NEB SOLN NEB PRN (12:00)
[2017-06-15] MEDS ORDERED: NITROGLYCERIN 0.4 MG SL TAB SL PRN (12:00)
[2017-06-15] MEDS ORDERED: MORPHINE SULFATE 4 MG/ML SYR/VIAL IV PRN (12:00)
[2017-06-15] MEDS: fentaNYL Drip 2500mCg/250mlNS 250 ML IV SCH (12:02)
[2017-06-15] MEDS ORDERED: ATRACURIUM BESYLATE 1,000 MG in D5W 5% 150 ML IV ONE (17:30)
[2017-06-15] MEDS ORDERED: ATRACURIUM BESYLATE 1,000 MG in D5W 5% 150 ML IV SCH (18:30)
[2017-06-16] VITALS (91 sets, daily range): BP systolic 96–137; BP diastolic 43–109
[2017-06-16] MEDS: IPRATROPIUM BROM 0.5 MG/2.5ML INH SOL NEB SCH ×4 (00:14→18:48)
[2017-06-16] MEDS: ALBUTEROL SULF 2.5 MG/0.5ML(0.5%) NEB SOLN NEB SCH ×4 (00:14→18:48)
[2017-06-16] MEDS: ACETAMINOPHEN 650 mg PER 20 mL UD PO PRN ×2 (00:47→06:23)
[2017-06-16] MEDS: Novasource Renal 1 Liter GT SCH (00:47)
[2017-06-16] MEDS: metroNIDAZOLE 500MG/100ML 100 ML IV SCH ×3 (01:30→15:46)
[2017-06-16 04:02] LABS: Potassium 3.8 mmol/L (3.5-5.1)
[2017-06-16 04:12] LABS: BUN/Creatinine Ratio 16.2; Calcium 7.3 mg/dL (8.5-10.1); Magnesium 1.9 mg/dL (1.6-2.6)
[2017-06-16] MEDS: cefTAZidime 1 GM in SODIUM CHL 0.9% 50 ML IV SCH ×3 (04:55→20:34)
[2017-06-16] MEDS: PANTOPRAZOLE 40 MG/10 ML VIAL IV SCH (10:04)
[2017-06-16] MEDS: LINEZOLID 600MG/300ML 300 ML IV SCH ×2 (10:04→21:55)
[2017-06-16] MEDS: fentaNYL Drip 2500mCg/250mlNS 250 ML IV SCH (10:04)
[2017-06-16] MEDS: SODIUM CHLOR 0.9% PF (SALINE LOCK) 10ML VIAL IV SCH ×2 (10:05→21:55)
[2017-06-16] MEDS: PROPOFOL 100 ML IV SCH ×3 (10:05→21:56)
[2017-06-16] MEDS: MIDAZOLAM DRIP 50 mg/50mL 50 ML IV SCH ×3 (10:05→21:55)
[2017-06-16] MEDS: ENOXAPARIN SOD 40 MG/0.4 ML SYRINGE SC SCH (10:05)
[2017-06-16] MEDS: ACETAMINOPHEN 650 mg PER 20 mL UD GT PRN (10:43)
[2017-06-16] MEDS ORDERED: FLUCONAZOLE 200MG/100ML 100 ML IV ONE (14:00)
[2017-06-17] VITALS (59 sets, daily range): BP systolic 98–129; BP diastolic 48–94
[2017-06-17] MEDS: metroNIDAZOLE 500MG/100ML 100 ML IV SCH ×2 (00:20→09:12)
[2017-06-17] MEDS: ALBUTEROL SULF 2.5 MG/0.5ML(0.5%) NEB SOLN NEB SCH ×4 (00:41→18:04)
[2017-06-17] MEDS: IPRATROPIUM BROM 0.5 MG/2.5ML INH SOL NEB SCH ×4 (00:42→18:04)
[2017-06-17] MEDS: MIDAZOLAM DRIP 50 mg/50mL 50 ML IV SCH ×5 (02:04→20:59)
[2017-06-17] MEDS: PROPOFOL 100 ML IV SCH ×5 (02:50→23:00)
[2017-06-17] MEDS: cefTAZidime 1 GM in SODIUM CHL 0.9% 50 ML IV SCH (04:39)
[2017-06-17] MEDS: fentaNYL Drip 2500mCg/250mlNS 250 ML IV SCH (04:39)
[2017-06-17 05:44] LABS: Hemoglobin 8.2 g/dL (13.5-17.5)
[2017-06-17 05:47] LABS: Mean Corpuscular Hgb Conc. 34.1 g/dL (32.0-36.0); Platelet Count (auto) 172 10^3/uL (140-450); Red Blood Cells 2.82 10^6/uL (4.5-5.90); Red Cell Distribution Width 14.3 % (11.8-14.3); White Blood Cell 11.7 10^3/uL (4.4-10.8)
[2017-06-17 05:57] LABS: Basophils % (manual) 0 (0.0-2.0); Blast Cells 0; Myelocytes % 0; Promyelocytes % 0; Reactive Lymphocytes 0
[2017-06-17 06:04] LABS: BUN/Creatinine Ratio 19.4; Calcium 7.3 mg/dL (8.5-10.1); Potassium 3.5 mmol/L (3.5-5.1)
[2017-06-17] MEDS: ACETAMINOPHEN 650 mg PER 20 mL UD GT PRN ×2 (09:12→14:33)
[2017-06-17] MEDS: PANTOPRAZOLE 40 MG/10 ML VIAL IV SCH (10:12)
[2017-06-17] MEDS: SODIUM CHLOR 0.9% PF (SALINE LOCK) 10ML VIAL IV SCH ×2 (11:08→22:30)
[2017-06-17] MEDS: ENOXAPARIN SOD 40 MG/0.4 ML SYRINGE SC SCH (11:12)
[2017-06-17] MEDS: LINEZOLID 600MG/300ML 300 ML IV SCH ×2 (11:12→22:40)
[2017-06-17] MEDS: metroNIDAZOLE 500 MG TAB PO SCH ×2 (13:51→22:35)
[2017-06-17] MEDS: FLUCONAZOLE 200MG/100ML 100 ML IV SCH (13:56)
[2017-06-17] MEDS: MEROPENEM 1gm/20ml IVPUSH 20 ML IV SCH ×2 (14:14→22:30)
[2017-06-17 14:39] LABS: Band Neutrophils % (manual) 2; Eosinophils % (manual) 1 (0-7); Lymphocytes % (manual) 11 (10.0-50.0); Metamyelocytes % 4; Monocytes % (manual) 8 (0-12)
[2017-06-17] MEDS: Novasource Renal 1 Liter GT SCH (23:00)
[2017-06-18] VITALS (60 sets, daily range): BP systolic 87–166; BP diastolic 43–98
[2017-06-18] MEDS: ALBUTEROL SULF 2.5 MG/0.5ML(0.5%) NEB SOLN NEB SCH ×4 (00:23→18:47)
[2017-06-18] MEDS: IPRATROPIUM BROM 0.5 MG/2.5ML INH SOL NEB SCH ×4 (00:23→18:47)
[2017-06-18] MEDS: ACETAMINOPHEN 650 mg PER 20 mL UD GT PRN ×2 (00:52→08:44)
[2017-06-18] MEDS: MIDAZOLAM DRIP 50 mg/50mL 50 ML IV SCH ×4 (01:15→18:22)
[2017-06-18] MEDS: PROPOFOL 100 ML IV SCH ×4 (04:49→17:02)
[2017-06-18] MEDS: MORPHINE SULFATE 4 MG/ML SYR/VIAL IV PRN (04:56)
[2017-06-18 05:03] LABS: Hematocrit 23.5 % (41.0-53.0); Hemoglobin 8.1 g/dL (13.5-17.5); White Blood Cell 10.6 10^3/uL (4.4-10.8)
[2017-06-18 05:05] LABS: Mean Corpuscular Hemoglobin 29.1 pg (28.0-32.0); Mean Corpuscular Hgb Conc. 34.3 g/dL (32.0-36.0); Mean Corpuscular Volume 84.9 fL (80.0-100.0); Platelet Count (auto) 171 10^3/uL (140-450); Red Blood Cells 2.77 10^6/uL (4.5-5.90)
[2017-06-18 05:13] LABS: Basophils % (manual) 0 (0.0-2.0); Blast Cells 0; Promyelocytes % 0; Reactive Lymphocytes 0
[2017-06-18] MEDS: MEROPENEM 1gm/20ml IVPUSH 20 ML IV SCH ×3 (05:38→22:18)
[2017-06-18] MEDS: metroNIDAZOLE 500 MG TAB PO SCH ×3 (05:38→22:17)
[2017-06-18 06:41] LABS: Band Neutrophils % (manual) 5; Eosinophils % (manual) 3 (0-7); Lymphocytes % (manual) 16 (10.0-50.0); Metamyelocytes % 2; Monocytes % (manual) 9 (0-12); Myelocytes % 4
[2017-06-18] MEDS: fentaNYL Drip 2500mCg/250mlNS 250 ML IV SCH (07:00)
[2017-06-18] MEDS: SODIUM CHLOR 0.9% PF (SALINE LOCK) 10ML VIAL IV SCH ×2 (09:41→22:18)
[2017-06-18] MEDS: LINEZOLID 600MG/300ML 300 ML IV SCH ×2 (09:41→22:18)
[2017-06-18] MEDS: PANTOPRAZOLE 40 MG/10 ML VIAL IV SCH (09:41)
[2017-06-18] MEDS: ENOXAPARIN SOD 40 MG/0.4 ML SYRINGE SC SCH (09:47)
[2017-06-18] MEDS: fentaNYL 100MCG/HR 100 MCG/HR PAT TD SCH (10:00)
[2017-06-18] MEDS: FLUCONAZOLE 200MG/100ML 100 ML IV SCH (14:05)
[2017-06-18] MEDS ORDERED: Novasource Renal 1 Liter GT SCH (17:00)
[2017-06-18] MEDS ORDERED: metroNIDAZOLE 500 MG TAB ONE (21:49)
[2017-06-18] MEDS ORDERED: LINEZOLID 600MG/300ML 300 ML IV ONE (21:50)
[2017-06-19] VITALS (61 sets, daily range): BP systolic 87–134; BP diastolic 42–91
[2017-06-19] MEDS: MIDAZOLAM DRIP 50 mg/50mL 50 ML IV SCH ×4 (00:07→22:49)
[2017-06-19] MEDS: ALBUTEROL SULF 2.5 MG/0.5ML(0.5%) NEB SOLN NEB SCH ×4 (00:28→18:07)
[2017-06-19] MEDS: IPRATROPIUM BROM 0.5 MG/2.5ML INH SOL NEB SCH ×4 (00:28→18:07)
[2017-06-19 03:49] LABS: Hematocrit 24.1 % (41.0-53.0); Mean Corpuscular Hgb Conc. 34.2 g/dL (32.0-36.0)
[2017-06-19 03:52] LABS: Hemoglobin 8.3 g/dL (13.5-17.5); Mean Corpuscular Volume 84.7 fL (80.0-100.0); Platelet Count (auto) 169 10^3/uL (140-450); Red Blood Cells 2.85 10^6/uL (4.5-5.90); Red Cell Distribution Width 15.3 % (11.8-14.3); White Blood Cell 7.8 10^3/uL (4.4-10.8)
[2017-06-19 04:00] LABS: Albumin 1.4 g/dL (3.4-5.0); BUN/Creatinine Ratio 34.6; Calcium 7.6 mg/dL (8.5-10.1)
[2017-06-19 04:08] LABS: Blast Cells 0; Promyelocytes % 0; Reactive Lymphocytes 0
[2017-06-19 04:14] LABS: Bilirubin, Total 0.4 mg/dL (0.2-1.0); Total Protein 5.5 g/dL (6.4-8.2)
[2017-06-19 04:16] LABS: Potassium 2.9 mmol/L (3.5-5.1)
[2017-06-19 04:42] LABS: Band Neutrophils % (manual) 4; Basophils % (manual) 1 (0.0-2.0); Eosinophils % (manual) 4 (0-7); Lymphocytes % (manual) 8 (10.0-50.0); Metamyelocytes % 1; Monocytes % (manual) 19 (0-12); Myelocytes % 1
[2017-06-19] MEDS ORDERED: POTASSIUM CHL 20MEQ/100ML 200 ML IV ONE (04:57)
[2017-06-19] MEDS: POTASSIUM CHL 20MEQ/100ML 100 ML IV SCH ×2 (05:00→06:43)
[2017-06-19] MEDS ORDERED: metroNIDAZOLE 500 MG TAB ONE (05:55)
[2017-06-19] MEDS: metroNIDAZOLE 500 MG TAB PO SCH ×3 (06:00→22:16)
[2017-06-19] MEDS: MEROPENEM 1gm/20ml IVPUSH 20 ML IV SCH ×3 (06:00→22:16)
[2017-06-19] MEDS: fentaNYL Drip 2500mCg/250mlNS 250 ML IV SCH (08:50)
[2017-06-19] MEDS: LINEZOLID 600MG/300ML 300 ML IV SCH ×2 (09:46→22:16)
[2017-06-19] MEDS: PANTOPRAZOLE 40 MG/10 ML VIAL IV SCH (09:46)
[2017-06-19] MEDS: SODIUM CHLOR 0.9% PF (SALINE LOCK) 10ML VIAL IV SCH ×2 (09:46→22:16)
[2017-06-19] MEDS: ENOXAPARIN SOD 40 MG/0.4 ML SYRINGE SC SCH (09:46)
[2017-06-19] MEDS: PROPOFOL 100 ML IV SCH (14:06)
[2017-06-19] MEDS: FLUCONAZOLE 200MG/100ML 100 ML IV SCH (14:06)
[2017-06-19] MEDS ORDERED: FUROSEMIDE 20 MG/2 ML VIAL IV ONE (14:15)
[2017-06-19] MEDS ORDERED: POTASSIUM CHL 10% (20 MEQ/15ML) 15ml ORAL SOLN GT ONE (14:15)
[2017-06-20] VITALS (57 sets, daily range): BP systolic 85–134; BP diastolic 43–94
[2017-06-20] MEDS: ALBUTEROL SULF 2.5 MG/0.5ML(0.5%) NEB SOLN NEB SCH ×4 (00:12→18:13)
[2017-06-20] MEDS: IPRATROPIUM BROM 0.5 MG/2.5ML INH SOL NEB SCH ×4 (00:12→18:13)
[2017-06-20] MEDS: PROPOFOL 100 ML IV SCH ×2 (00:29→20:00)
[2017-06-20] MEDS: MIDAZOLAM DRIP 50 mg/50mL 50 ML IV SCH ×3 (02:15→20:00)
[2017-06-20 05:18] LABS: BUN/Creatinine Ratio 28.6; Calcium 7.4 mg/dL (8.5-10.1); Potassium 3.6 mmol/L (3.5-5.1)
[2017-06-20] MEDS: MEROPENEM 1gm/20ml IVPUSH 20 ML IV SCH ×3 (06:00→22:14)
[2017-06-20] MEDS: metroNIDAZOLE 500 MG TAB PO SCH ×3 (06:00→22:15)
[2017-06-20] MEDS: PANTOPRAZOLE 40 MG/10 ML VIAL IV SCH (10:13)
[2017-06-20] MEDS: SODIUM CHLOR 0.9% PF (SALINE LOCK) 10ML VIAL IV SCH ×2 (10:13→22:14)
[2017-06-20] MEDS: LINEZOLID 600MG/300ML 300 ML IV SCH ×2 (10:13→22:15)
[2017-06-20] MEDS: ENOXAPARIN SOD 40 MG/0.4 ML SYRINGE SC SCH (10:14)
[2017-06-20] MEDS: FLUCONAZOLE 200MG/100ML 100 ML IV SCH (15:34)
[2017-06-21] VITALS (60 sets, daily range): BP systolic 89–149; BP diastolic 44–103
[2017-06-21] MEDS: IPRATROPIUM BROM 0.5 MG/2.5ML INH SOL NEB SCH ×4 (00:03→18:33)
[2017-06-21] MEDS: ALBUTEROL SULF 2.5 MG/0.5ML(0.5%) NEB SOLN NEB SCH ×5 (00:03→18:32)
[2017-06-21] MEDS: PROPOFOL 100 ML IV SCH ×6 (00:30→21:31)
[2017-06-21] MEDS: MIDAZOLAM DRIP 50 mg/50mL 50 ML IV SCH ×6 (04:00→21:31)
[2017-06-21] MEDS: fentaNYL Drip 2500mCg/250mlNS 250 ML IV SCH ×2 (04:00→12:02)
[2017-06-21 04:27] LABS: Basophils # (auto) 0.1 uL; Basophils % (auto) 1.3 % (0.0-2.0); Eosinophils # (auto) 0.2 uL; Eosinophils % (auto) 2.2 % (0.0-7.0); Hematocrit 25.6 % (41.0-53.0); Hemoglobin 8.6 g/dL (13.5-17.5); Lymphocytes # (auto) 1.8 uL; Lymphocytes % (auto) 25.1 % (10.0-50.0); Mean Corpuscular Hemoglobin 28.6 pg (28.0-32.0); Mean Corpuscular Hgb Conc. 33.6 g/dL (32.0-36.0); Mean Corpuscular Volume 85.2 fL (80.0-100.0); Monocytes # (auto) 0.8 uL; Neutrophils # (auto) 4.1 uL; Neutrophils % (auto) 59.4 % (37.0-80.0); Platelet Count (auto) 230 10^3/uL (140-450); Red Cell Distribution Width 15.9 % (11.8-14.3)
[2017-06-21 04:48] LABS: BUN/Creatinine Ratio 17.2; Calcium 7.7 mg/dL (8.5-10.1)
[2017-06-21] MEDS: metroNIDAZOLE 500 MG TAB PO SCH ×3 (06:27→21:31)
[2017-06-21] MEDS: MEROPENEM 1gm/20ml IVPUSH 20 ML IV SCH ×3 (06:27→21:31)
[2017-06-21 07:18] LABS: Potassium 3.6 mmol/L (3.5-5.1)
[2017-06-21] MEDS: SODIUM CHLOR 0.9% PF (SALINE LOCK) 10ML VIAL IV SCH ×2 (09:32→21:31)
[2017-06-21] MEDS: PANTOPRAZOLE 40 MG/10 ML VIAL IV SCH (09:32)
[2017-06-21] MEDS: LINEZOLID 600MG/300ML 300 ML IV SCH ×2 (09:32→21:32)
[2017-06-21] MEDS: ENOXAPARIN SOD 40 MG/0.4 ML SYRINGE SC SCH (09:38)
[2017-06-21] MEDS: fentaNYL 100MCG/HR 100 MCG/HR PAT TD SCH (10:00)
[2017-06-21] MEDS: FLUCONAZOLE 200MG/100ML 100 ML IV SCH (13:39)
[2017-06-21] MEDS: ACETAMINOPHEN 650 mg PER 20 mL UD GT PRN (14:00)
[2017-06-21] MEDS: LORazepam 2MG/ML-1ML VIAL IV PRN (14:00)
[2017-06-22] VITALS (54 sets, daily range): BP systolic 89–130; BP diastolic 53–101
[2017-06-22] MEDS: IPRATROPIUM BROM 0.5 MG/2.5ML INH SOL NEB SCH ×4 (00:13→19:09)
[2017-06-22] MEDS: ALBUTEROL SULF 2.5 MG/0.5ML(0.5%) NEB SOLN NEB SCH ×4 (00:13→19:09)
[2017-06-22] MEDS: MIDAZOLAM DRIP 50 mg/50mL 50 ML IV SCH ×5 (01:13→18:05)
[2017-06-22 04:08] LABS: Hemoglobin 7.7 g/dL (13.5-17.5); Red Blood Cells 2.64 10^6/uL (4.5-5.90); White Blood Cell 5.5 10^3/uL (4.4-10.8)
[2017-06-22 04:10] LABS: Hematocrit 22.4 % (41.0-53.0); Mean Corpuscular Hemoglobin 29.2 pg (28.0-32.0); Mean Corpuscular Hgb Conc. 34.4 g/dL (32.0-36.0); Mean Corpuscular Volume 84.9 fL (80.0-100.0); Platelet Count (auto) 215 10^3/uL (140-450); Red Cell Distribution Width 16.3 % (11.8-14.3)
[2017-06-22 04:20] LABS: Albumin 1.4 g/dL (3.4-5.0); BUN/Creatinine Ratio 21.7; Calcium 7.3 mg/dL (8.5-10.1)
[2017-06-22 04:23] LABS: Bilirubin, Total 0.3 mg/dL (0.2-1.0); Total Protein 5.4 g/dL (6.4-8.2)
[2017-06-22 04:35] LABS: Basophils % (manual) 0 (0.0-2.0); Blast Cells 0; Metamyelocytes % 0; Promyelocytes % 0; Reactive Lymphocytes 0
[2017-06-22 04:40] LABS: Potassium 2.9 mmol/L (3.5-5.1)
[2017-06-22 05:10] LABS: Band Neutrophils % (manual) 5; Lymphocytes % (manual) 32 (10.0-50.0)
[2017-06-22 05:11] LABS: Eosinophils % (manual) 1 (0-7); Monocytes % (manual) 13 (0-12); Myelocytes % 1
[2017-06-22] MEDS ORDERED: POTASSIUM CHL 20MEQ/100ML 200 ML IV ONE (05:31)
[2017-06-22] MEDS: fentaNYL Drip 2500mCg/250mlNS 250 ML IV SCH ×2 (06:00→20:40)
[2017-06-22] MEDS: POTASSIUM CHL 20MEQ/100ML 100 ML IV SCH ×2 (06:00→07:30)
[2017-06-22] MEDS: MEROPENEM 1gm/20ml IVPUSH 20 ML IV SCH ×3 (06:17→22:00)
[2017-06-22] MEDS: metroNIDAZOLE 500 MG TAB PO SCH ×3 (06:18→22:00)
[2017-06-22] MEDS ORDERED: FLUMAZENIL 0.1 MG/ML INJ 10ML MDV IV ONE (07:57)
[2017-06-22] MEDS ORDERED: EPINEPHrine HCL 1 MG/10 ML SYRG ONE (07:57)
[2017-06-22] MEDS ORDERED: NALOXONE HCL 0.4 MG/ML VIAL ONE (07:57)
[2017-06-22] MEDS ORDERED: SODIUM CHLORIDE LOCK 0 ML ONE (07:57)
[2017-06-22] MEDS ORDERED: diphenhdrAMINE HCL 50 MG/1 ML VL ONE (07:58)
[2017-06-22] MEDS ORDERED: MIDAZOLAM HCL 5 MG/ML-1ML VIAL ONE (07:58)
[2017-06-22] MEDS ORDERED: fentaNYL CITRATE 100 MCG/2 ML VL ONE (07:58)
[2017-06-22 08:23] LABS: INR 1.1 (0.9-1.15); Partial Thromboplastin Time 29.9 sec (22.64-33.71)
[2017-06-22] MEDS: PROPOFOL 100 ML IV SCH (09:12)
[2017-06-22] MEDS: PANTOPRAZOLE 40 MG/10 ML VIAL IV SCH (10:13)
[2017-06-22] MEDS: LINEZOLID 600MG/300ML 300 ML IV SCH ×2 (10:13→22:00)
[2017-06-22] MEDS: SODIUM CHLOR 0.9% PF (SALINE LOCK) 10ML VIAL IV SCH ×2 (10:13→22:00)
[2017-06-22] MEDS: ENOXAPARIN SOD 40 MG/0.4 ML SYRINGE SC SCH ×2 (10:13→10:47)
[2017-06-22] MEDS ORDERED: POTASSIUM CHL 20MEQ/100ML 100 ML IV SCH (12:45)
[2017-06-22] MEDS ORDERED: MORPHINE SULFATE 4 MG/ML SYR/VIAL IV PRN (12:45)
[2017-06-22] MEDS ORDERED: DIAZEPAM 5 MG/ML 2ML SYRG IV PRN ×2 (12:45)
[2017-06-22] MEDS: FLUCONAZOLE 200MG/100ML 100 ML IV SCH (13:46)
[2017-06-23] VITALS (56 sets, daily range): BP systolic 97–157; BP diastolic 61–117
[2017-06-23] MEDS: ALBUTEROL SULF 2.5 MG/0.5ML(0.5%) NEB SOLN NEB SCH ×4 (00:43→18:16)
[2017-06-23] MEDS: IPRATROPIUM BROM 0.5 MG/2.5ML INH SOL NEB SCH ×4 (00:43→18:16)
[2017-06-23] MEDS: MORPHINE SULFATE 4 MG/ML SYR/VIAL IV PRN ×2 (03:25→22:58)
[2017-06-23 04:19] LABS: Basophils # (auto) 0.1 uL; Eosinophils # (auto) 0.3 uL; Hematocrit 24.9 % (41.0-53.0); Hemoglobin 8.4 g/dL (13.5-17.5); Lymphocytes # (auto) 1.9 uL; Neutrophils % (auto) 56.7 % (37.0-80.0)
[2017-06-23 04:21] LABS: Eosinophils % (auto) 3.7 % (0.0-7.0); Lymphocytes % (auto) 25.2 % (10.0-50.0); Mean Corpuscular Hemoglobin 28.9 pg (28.0-32.0); Mean Corpuscular Hgb Conc. 33.8 g/dL (32.0-36.0); Mean Corpuscular Volume 85.4 fL (80.0-100.0); Monocytes % (auto) 13.4 % (0.0-12.0); Neutrophils # (auto) 4.2 uL; Platelet Count (auto) 247 10^3/uL (140-450); Red Blood Cells 2.91 10^6/uL (4.5-5.90); Red Cell Distribution Width 16.6 % (11.8-14.3); White Blood Cell 7.4 10^3/uL (4.4-10.8)
[2017-06-23 04:39] LABS: BUN/Creatinine Ratio 14.3; Calcium 7.7 mg/dL (8.5-10.1); Potassium 3.3 mmol/L (3.5-5.1)
[2017-06-23] MEDS: MEROPENEM 1gm/20ml IVPUSH 20 ML IV SCH (06:00)
[2017-06-23] MEDS: metroNIDAZOLE 500 MG TAB PO SCH ×3 (06:00→22:02)
[2017-06-23] MEDS: MIDAZOLAM DRIP 50 mg/50mL 50 ML IV SCH ×2 (09:00→20:30)
[2017-06-23] MEDS: LINEZOLID 600MG/300ML 300 ML IV SCH ×2 (10:04→22:02)
[2017-06-23] MEDS: PANTOPRAZOLE 40 MG/10 ML VIAL IV SCH (10:05)
[2017-06-23] MEDS: ENOXAPARIN SOD 40 MG/0.4 ML SYRINGE SC SCH (10:05)
[2017-06-23] MEDS: SODIUM CHLOR 0.9% PF (SALINE LOCK) 10ML VIAL IV SCH ×2 (10:05→22:02)
[2017-06-23] MEDS ORDERED: POTASSIUM CHL 10% (20 MEQ/15ML) 15ml ORAL SOLN GT ONE (13:00)
[2017-06-23] MEDS: FLUCONAZOLE 200MG/100ML 100 ML IV SCH (13:42)
[2017-06-23] MEDS: PROPOFOL 100 ML IV SCH (13:47)
[2017-06-23] MEDS: cefTRIAXone 1GM/10ml IVPUSH 10 ML IV SCH (14:13)
[2017-06-23] MEDS: fentaNYL Drip 2500mCg/250mlNS 250 ML IV SCH (14:15)
[2017-06-23] MEDS ORDERED: POTASSIUM CHL 20MEQ/100ML 100 ML IV ONE (14:15)
[2017-06-24] VITALS (60 sets, daily range): BP systolic 104–178; BP diastolic 55–115
[2017-06-24] MEDS: ALBUTEROL SULF 2.5 MG/0.5ML(0.5%) NEB SOLN NEB SCH ×4 (00:23→18:30)
[2017-06-24] MEDS: IPRATROPIUM BROM 0.5 MG/2.5ML INH SOL NEB SCH ×4 (00:23→18:30)
[2017-06-24] MEDS: PROPOFOL 100 ML IV SCH (01:00)
[2017-06-24 05:19] LABS: Hemoglobin 8.4 g/dL (13.5-17.5); White Blood Cell 7.8 10^3/uL (4.4-10.8)
[2017-06-24 05:20] LABS: Hematocrit 24.9 % (41.0-53.0); Mean Corpuscular Hgb Conc. 33.6 g/dL (32.0-36.0); Mean Corpuscular Volume 86.4 fL (80.0-100.0); Platelet Count (auto) 247 10^3/uL (140-450); Red Blood Cells 2.88 10^6/uL (4.5-5.90); Red Cell Distribution Width 17.2 % (11.8-14.3)
[2017-06-24 05:23] LABS: Basophils % (manual) 0 (0.0-2.0); Blast Cells 0; Myelocytes % 0; Promyelocytes % 0; Reactive Lymphocytes 0
[2017-06-24 05:36] LABS: BUN/Creatinine Ratio 15.8; Calcium 7.7 mg/dL (8.5-10.1); Potassium 3.3 mmol/L (3.5-5.1)
[2017-06-24] MEDS: metroNIDAZOLE 500 MG TAB PO SCH ×2 (06:00→12:56)
[2017-06-24 06:44] LABS: Band Neutrophils % (manual) 3; Eosinophils % (manual) 2 (0-7); Lymphocytes % (manual) 24 (10.0-50.0); Metamyelocytes % 1
[2017-06-24 06:45] LABS: Monocytes % (manual) 17 (0-12)
[2017-06-24] MEDS: cefTRIAXone 1GM/10ml IVPUSH 10 ML IV SCH (09:00)
[2017-06-24] MEDS: PANTOPRAZOLE 40 MG/10 ML VIAL IV SCH (11:21)
[2017-06-24] MEDS: LINEZOLID 600MG/300ML 300 ML IV SCH ×2 (11:21→21:23)
[2017-06-24] MEDS: SODIUM CHLOR 0.9% PF (SALINE LOCK) 10ML VIAL IV SCH ×2 (11:21→22:00)
[2017-06-24] MEDS: ENOXAPARIN SOD 40 MG/0.4 ML SYRINGE SC SCH (11:21)
[2017-06-24] MEDS ORDERED: SERTRALINE HCL 50 MG TAB PO ONE (12:00)
[2017-06-24] MEDS: POTASSIUM CHL 20MEQ/100ML 100 ML IV SCH ×2 (12:43→15:00)
[2017-06-24] MEDS: LORazepam 2MG/ML-1ML VIAL IV PRN (12:56)
[2017-06-24] MEDS ORDERED: LIDOCAINE 1% HCL (LOCAL ANESTH.) INJ 20ML MDV ID ONE (14:45)
[2017-06-24] MEDS: FLUCONAZOLE 200MG/100ML 100 ML IV SCH (16:30)
[2017-06-24] MEDS: MEROPENEM 1gm/20ml IVPUSH 20 ML IV SCH ×2 (17:30→22:00)
[2017-06-24] MEDS: PROMETHAZINE HCL 25 MG/ML 1ML IV PRN (18:58)
[2017-06-24] MEDS: MIDAZOLAM DRIP 50 mg/50mL 50 ML IV SCH (21:34)
[2017-06-24] MEDS: fentaNYL Drip 2500mCg/250mlNS 250 ML IV SCH (22:01)
[2017-06-25] VITALS (80 sets, daily range): BP systolic 103–169; BP diastolic 54–117
[2017-06-25] MEDS: ALBUTEROL SULF 2.5 MG/0.5ML(0.5%) NEB SOLN NEB SCH ×4 (00:27→18:41)
[2017-06-25] MEDS: IPRATROPIUM BROM 0.5 MG/2.5ML INH SOL NEB SCH ×4 (00:27→18:40)
[2017-06-25] MEDS: MIDAZOLAM DRIP 50 mg/50mL 50 ML IV SCH ×3 (01:00→09:50)
[2017-06-25] MEDS: PROMETHAZINE HCL 25 MG/ML 1ML IV PRN ×2 (06:01→15:56)
[2017-06-25] MEDS: MEROPENEM 1gm/20ml IVPUSH 20 ML IV SCH ×3 (06:01→22:09)
[2017-06-25] MEDS: SERTRALINE HCL 50 MG TAB PO SCH (09:52)
[2017-06-25] MEDS: PANTOPRAZOLE 40 MG/10 ML VIAL IV SCH (09:52)
[2017-06-25] MEDS: SODIUM CHLOR 0.9% PF (SALINE LOCK) 10ML VIAL IV SCH ×2 (09:53→22:09)
[2017-06-25] MEDS: ENOXAPARIN SOD 40 MG/0.4 ML SYRINGE SC SCH (09:53)
[2017-06-25] MEDS: LINEZOLID 600MG/300ML 300 ML IV SCH (09:53)
[2017-06-25] MEDS: PROPOFOL 100 ML IV SCH (11:11)
[2017-06-25] MEDS ORDERED: FUROSEMIDE 20 MG/2 ML VIAL IV ONE (11:30)
[2017-06-25] MEDS: POTASSIUM CHL 20MEQ/100ML 100 ML IV SCH ×2 (12:02→13:31)
[2017-06-25] MEDS: LORazepam 2MG/ML-1ML VIAL IV PRN (12:02)
[2017-06-25] MEDS: FLUCONAZOLE 200MG/100ML 100 ML IV SCH (13:31)
[2017-06-26] VITALS (85 sets, daily range): BP systolic 96–140; BP diastolic 52–99
[2017-06-26] MEDS: MIDAZOLAM DRIP 50 mg/50mL 50 ML IV SCH ×4 (01:10→21:56)
[2017-06-26 04:11] LABS: Basophils # (auto) 0.1 uL; Eosinophils # (auto) 0.1 uL; Hemoglobin 8.4 g/dL (13.5-17.5); Lymphocytes # (auto) 2.2 uL
[2017-06-26 04:13] LABS: Eosinophils % (auto) 1.7 % (0.0-7.0); Hematocrit 25.8 % (41.0-53.0); Lymphocytes % (auto) 30.2 % (10.0-50.0); Mean Corpuscular Hemoglobin 28.6 pg (28.0-32.0); Mean Corpuscular Hgb Conc. 32.8 g/dL (32.0-36.0); Mean Corpuscular Volume 87.2 fL (80.0-100.0); Monocytes # (auto) 1.2 uL; Monocytes % (auto) 16.4 % (0.0-12.0); Neutrophils # (auto) 3.8 uL; Neutrophils % (auto) 50.7 % (37.0-80.0); Nucleated Red Blood Cells % 0.1 %; Platelet Count (auto) 275 10^3/uL (140-450); Red Blood Cells 2.96 10^6/uL (4.5-5.90); Red Cell Distribution Width 17.6 % (11.8-14.3); White Blood Cell 7.4 10^3/uL (4.4-10.8)
[2017-06-26 04:35] LABS: Alanine Aminotransferase 10 U/L (16-61); Albumin 1.7 g/dL (3.4-5.0); Anion Gap 9 (5-15); Aspartate Aminotransferase 18 U/L (15-37); BUN/Creatinine Ratio 3.6; Blood Urea Nitrogen < 1 mg/dL (7-18); Calcium 7.6 mg/dL (8.5-10.1); Carbon Dioxide 29 mmol/L (21-32); Chloride 101 mmol/L (98-107); GFR African American 484 mL/min; GFR Non-African American 400 mL/min; Glucose 67 mg/dL (74-106); Potassium 3.3 mmol/L (3.5-5.1); Sodium 139 mmol/L (136-145)
[2017-06-26 04:38] LABS: Alkaline Phosphatase 149 U/L (45-117); Bilirubin, Total 0.5 mg/dL (0.2-1.0); Total Protein 5.7 g/dL (6.4-8.2)
[2017-06-26] MEDS: IPRATROPIUM BROM 0.5 MG/2.5ML INH SOL NEB SCH ×4 (05:42→22:42)
[2017-06-26] MEDS: ALBUTEROL SULF 2.5 MG/0.5ML(0.5%) NEB SOLN NEB SCH ×2 (05:45)
[2017-06-26] MEDS: MEROPENEM 1gm/20ml IVPUSH 20 ML IV SCH ×3 (05:54→21:56)
[2017-06-26] MEDS: Nutren Pulmonary 1 Liter GT SCH ×2 (05:55→06:19)
[2017-06-26] MEDS ORDERED: METOCLOPRAMIDE HCL 5MG/ml INJ 2ml VIAL IV ONE (10:15)
[2017-06-26] MEDS: SERTRALINE HCL 50 MG TAB PO SCH (11:18)
[2017-06-26] MEDS: PANTOPRAZOLE 40 MG/10 ML VIAL IV SCH (11:18)
[2017-06-26] MEDS: SODIUM CHLOR 0.9% PF (SALINE LOCK) 10ML VIAL IV SCH ×2 (11:18→22:00)
[2017-06-26] MEDS: FLUCONAZOLE 200MG/100ML 100 ML IV SCH (13:14)
[2017-06-26] MEDS ORDERED: POTASSIUM CHL 10% (20 MEQ/15ML) 15ml ORAL SOLN GT ONE (13:30)
[2017-06-26] MEDS ORDERED: MORPHINE SULFATE 4 MG/ML SYR/VIAL IV PRN (13:30)
[2017-06-26] MEDS: PROPOFOL 100 ML IV SCH (13:47)
[2017-06-26] MEDS: METOCLOPRAMIDE HCL 5MG/ml INJ 2ml VIAL IV SCH ×2 (13:49→21:00)
[2017-06-26] MEDS ORDERED: METOCLOPRAMIDE HCL 5MG/ml INJ 2ml VIAL IV SCH (14:00)
[2017-06-26] MEDS: LEVALBUTEROL HCL 1.25 MG/3 ML NEB IN SCH ×2 (14:03→22:00)
[2017-06-26] MEDS ORDERED: MULTIPLE VITAMINS W/ MINERALS TAB PEG ONE (14:30)
[2017-06-26] MEDS: fentaNYL Drip 2500mCg/250mlNS 250 ML IV SCH (16:34)
[2017-06-26] MEDS: ACETAMINOPHEN 650 mg PER 20 mL UD GT PRN (17:09)
[2017-06-26] MEDS: PRO-STAT 64 30ML GT SCH (22:00)
[2017-06-26] MEDS: ASCORBIC ACID 500 MG TAB PO SCH (22:00)
[2017-06-26] MEDS ORDERED: IPRATROPIUM BROM 0.5 MG/2.5ML INH SOL ONE (22:11)
[2017-06-27] VITALS (103 sets, daily range): BP systolic 111–151; BP diastolic 52–117
[2017-06-27] MEDS: PROMETHAZINE HCL 25 MG/ML 1ML IV PRN (02:24)
[2017-06-27] MEDS: MIDAZOLAM DRIP 50 mg/50mL 50 ML IV SCH (02:30)
[2017-06-27 03:56] LABS: Basophils # (auto) 0.1 uL; Basophils % (auto) 0.8 % (0.0-2.0); Eosinophils # (auto) 0.1 uL; Eosinophils % (auto) 1.3 % (0.0-7.0); Hematocrit 29.7 % (41.0-53.0); Hemoglobin 9.9 g/dL (13.5-17.5); Lymphocytes % (auto) 23.9 % (10.0-50.0); Mean Corpuscular Hemoglobin 28.8 pg (28.0-32.0); Mean Corpuscular Hgb Conc. 33.4 g/dL (32.0-36.0); Mean Corpuscular Volume 86.2 fL (80.0-100.0); Monocytes # (auto) 0.9 uL; Monocytes % (auto) 10.9 % (0.0-12.0); Neutrophils # (auto) 5.4 uL; Neutrophils % (auto) 63.1 % (37.0-80.0); Nucleated Red Blood Cells % 0.2 %; Platelet Count (auto) 259 10^3/uL (140-450); Red Blood Cells 3.44 10^6/uL (4.5-5.90); Red Cell Distribution Width 16.9 % (11.8-14.3); White Blood Cell 8.5 10^3/uL (4.4-10.8)
[2017-06-27 04:14] LABS: Albumin 1.8 g/dL (3.4-5.0); BUN/Creatinine Ratio 11.4; Bilirubin, Total 0.5 mg/dL (0.2-1.0); Calcium 7.6 mg/dL (8.5-10.1); Potassium 3.6 mmol/L (3.5-5.1); Total Protein 6.3 g/dL (6.4-8.2)
[2017-06-27] MEDS: LORazepam 2MG/ML-1ML VIAL IV PRN (04:58)
[2017-06-27] MEDS: METOCLOPRAMIDE HCL 5MG/ml INJ 2ml VIAL IV SCH ×3 (04:58→20:58)
[2017-06-27] MEDS: MEROPENEM 1gm/20ml IVPUSH 20 ML IV SCH ×3 (06:00→23:01)
[2017-06-27] MEDS: LEVALBUTEROL HCL 1.25 MG/3 ML NEB IN SCH ×3 (06:10→21:54)
[2017-06-27] MEDS: IPRATROPIUM BROM 0.5 MG/2.5ML INH SOL NEB SCH ×3 (06:10→21:54)
[2017-06-27] MEDS: ENOXAPARIN SOD 40 MG/0.4 ML SYRINGE SC SCH (08:57)
[2017-06-27] MEDS: PANTOPRAZOLE 40 MG/10 ML VIAL IV SCH (08:57)
[2017-06-27] MEDS: SERTRALINE HCL 50 MG TAB PO SCH (08:57)
[2017-06-27] MEDS: POTASSIUM CHL 10% (20 MEQ/15ML) 15ml ORAL SOLN GT SCH (08:57)
[2017-06-27] MEDS: MULTIPLE VITAMINS W/ MINERALS TAB PEG SCH (08:57)
[2017-06-27] MEDS: ASCORBIC ACID 500 MG TAB PO SCH ×2 (08:57→23:02)
[2017-06-27] MEDS: PRO-STAT 64 30ML GT SCH ×2 (08:57→22:00)
[2017-06-27] MEDS: SODIUM CHLOR 0.9% PF (SALINE LOCK) 10ML VIAL IV SCH ×2 (08:57→22:00)
[2017-06-27] MEDS: fentaNYL Drip 2500mCg/250mlNS 250 ML IV SCH (12:00)
[2017-06-27] MEDS: PROPOFOL 100 ML IV SCH (13:24)
[2017-06-27] MEDS: FLUCONAZOLE 200MG/100ML 100 ML IV SCH (13:57)
[2017-06-28] VITALS (82 sets, daily range): BP systolic 117–145; BP diastolic 71–107
[2017-06-28] MEDS: METOCLOPRAMIDE HCL 5MG/ml INJ 2ml VIAL IV SCH ×3 (05:38→21:00)
[2017-06-28] MEDS: LEVALBUTEROL HCL 1.25 MG/3 ML NEB IN SCH ×3 (05:52→22:23)
[2017-06-28] MEDS: IPRATROPIUM BROM 0.5 MG/2.5ML INH SOL NEB SCH ×3 (05:52→22:23)
[2017-06-28] MEDS: MEROPENEM 1gm/20ml IVPUSH 20 ML IV SCH ×3 (06:02→22:00)
[2017-06-28] MEDS: fentaNYL Drip 2500mCg/250mlNS 250 ML IV SCH (06:24)
[2017-06-28] MEDS: PANTOPRAZOLE 40 MG/10 ML VIAL IV SCH (11:00)
[2017-06-28] MEDS: POTASSIUM CHL 10% (20 MEQ/15ML) 15ml ORAL SOLN GT SCH (11:00)
[2017-06-28] MEDS: SERTRALINE HCL 50 MG TAB PO SCH (11:00)
[2017-06-28] MEDS: ASCORBIC ACID 500 MG TAB PO SCH ×2 (11:00→22:00)
[2017-06-28] MEDS: SODIUM CHLOR 0.9% PF (SALINE LOCK) 10ML VIAL IV SCH ×2 (11:00→22:00)
[2017-06-28] MEDS: ENOXAPARIN SOD 40 MG/0.4 ML SYRINGE SC SCH (11:00)
[2017-06-28] MEDS: MULTIPLE VITAMINS W/ MINERALS TAB PEG SCH (11:00)
[2017-06-28] MEDS: PRO-STAT 64 30ML GT SCH ×2 (11:00→22:00)
[2017-06-28] MEDS: MIDAZOLAM DRIP 50 mg/50mL 50 ML IV SCH (13:03)
[2017-06-28] MEDS: PROPOFOL 100 ML IV SCH (13:47)
[2017-06-28] MEDS: FLUCONAZOLE 200MG/100ML 100 ML IV SCH (14:40)
[2017-06-28 15:22] LABS: Hematocrit 28.2 % (41.0-53.0); Hemoglobin 9.6 g/dL (13.5-17.5); Mean Corpuscular Hemoglobin 29.6 pg (28.0-32.0); Mean Corpuscular Volume 86.9 fL (80.0-100.0); Platelet Count (auto) 213 10^3/uL (140-450); Red Blood Cells 3.24 10^6/uL (4.5-5.90); Red Cell Distribution Width 16.6 % (11.8-14.3); White Blood Cell 6.8 10^3/uL (4.4-10.8)
[2017-06-28 15:24] LABS: Band Neutrophils % (manual) 0; Basophils % (manual) 0 (0.0-2.0); Blast Cells 0; Eosinophils % (manual) 0 (0-7); Metamyelocytes % 0; Myelocytes % 0; Promyelocytes % 0; Reactive Lymphocytes 0
[2017-06-28 15:37] LABS: BUN/Creatinine Ratio 18.2; Calcium 7.3 mg/dL (8.5-10.1); Potassium 3.8 mmol/L (3.5-5.1)
[2017-06-28 16:20] LABS: Lymphocytes % (manual) 40 (10.0-50.0); Monocytes % (manual) 9 (0-12)
[2017-06-29] VITALS (68 sets, daily range): BP systolic 114–148; BP diastolic 70–105
[2017-06-29] MEDS: METOCLOPRAMIDE HCL 5MG/ml INJ 2ml VIAL IV SCH ×3 (05:00→21:00)
[2017-06-29] MEDS: MEROPENEM 1gm/20ml IVPUSH 20 ML IV SCH ×3 (06:00→22:29)
[2017-06-29] MEDS: IPRATROPIUM BROM 0.5 MG/2.5ML INH SOL NEB SCH ×3 (06:07→18:00)
[2017-06-29] MEDS: LEVALBUTEROL HCL 1.25 MG/3 ML NEB IN SCH ×3 (06:07→18:00)
[2017-06-29] MEDS: PANTOPRAZOLE 40 MG/10 ML VIAL IV SCH (09:15)
[2017-06-29] MEDS: MULTIPLE VITAMINS W/ MINERALS TAB PEG SCH (09:15)
[2017-06-29] MEDS: POTASSIUM CHL 10% (20 MEQ/15ML) 15ml ORAL SOLN GT SCH (09:15)
[2017-06-29] MEDS: PRO-STAT 64 30ML GT SCH ×2 (09:16→22:12)
[2017-06-29] MEDS: ASCORBIC ACID 500 MG TAB PO SCH ×2 (09:16→22:13)
[2017-06-29] MEDS: SERTRALINE HCL 50 MG TAB PO SCH (09:16)
[2017-06-29] MEDS ORDERED: NITROGLYCERIN 0.4 MG SL TAB SL PRN (09:30)
[2017-06-29] MEDS ORDERED: LACTULOSE 20Gm/30ML SOLN PO PRN (09:30)
[2017-06-29] MEDS: SODIUM CHLOR 0.9% PF (SALINE LOCK) 10ML VIAL IV SCH ×2 (09:47→22:13)
[2017-06-29] MEDS: ENOXAPARIN SOD 40 MG/0.4 ML SYRINGE SC SCH (09:48)
[2017-06-29] MEDS: fentaNYL Drip 2500mCg/250mlNS 250 ML IV SCH ×2 (12:02)
[2017-06-29] MEDS: FLUCONAZOLE 200MG/100ML 100 ML IV SCH (13:08)
[2017-06-29] MEDS: AMOXICILLIN/CLAVUL 875 MG TAB PEG SCH ×2 (14:46→22:27)
[2017-06-29] MEDS: ACETAMINOPHEN 650 mg PER 20 mL UD GT PRN (21:33)
[2017-06-29] MEDS: LORazepam 2MG/ML-1ML VIAL IV PRN (22:27)
[2017-06-30] VITALS (102 sets, daily range): BP systolic 112–156; BP diastolic 73–102
[2017-06-30] MEDS: METOCLOPRAMIDE HCL 5MG/ml INJ 2ml VIAL IV SCH ×2 (04:44→13:00)
[2017-06-30] MEDS: MEROPENEM 1gm/20ml IVPUSH 20 ML IV SCH ×3 (06:00→22:04)
[2017-06-30] MEDS: IPRATROPIUM BROM 0.5 MG/2.5ML INH SOL NEB SCH ×3 (06:01→22:18)
[2017-06-30] MEDS: LEVALBUTEROL HCL 1.25 MG/3 ML NEB IN SCH ×3 (06:01→22:18)
[2017-06-30] MEDS: PROMETHAZINE HCL 25 MG/ML 1ML IV PRN ×2 (09:05→21:26)
[2017-06-30] MEDS: PRO-STAT 64 30ML GT SCH (10:00)
[2017-06-30] MEDS: POTASSIUM CHL 10% (20 MEQ/15ML) 15ml ORAL SOLN GT SCH (10:00)
[2017-06-30] MEDS ORDERED: MORPHINE SULFATE 4 MG/ML SYR/VIAL IV PRN (10:15)
[2017-06-30] MEDS ORDERED: DIAZEPAM 5 MG/ML 2ML SYRG IV PRN ×2 (10:15→11:00)
[2017-06-30] MEDS: ENOXAPARIN SOD 40 MG/0.4 ML SYRINGE SC SCH (10:21)
[2017-06-30] MEDS: SERTRALINE HCL 50 MG TAB PO SCH (10:21)
[2017-06-30] MEDS: PANTOPRAZOLE 40 MG/10 ML VIAL IV SCH (10:21)
[2017-06-30] MEDS: SODIUM CHLOR 0.9% PF (SALINE LOCK) 10ML VIAL IV SCH ×2 (10:21→22:05)
[2017-06-30] MEDS: ASCORBIC ACID 500 MG TAB PO SCH ×2 (10:21→22:00)
[2017-06-30] MEDS: MULTIPLE VITAMINS W/ MINERALS TAB PEG SCH (10:21)
[2017-06-30 10:53] LABS: Basophils # (auto) 0.1 uL; Basophils % (auto) 1.1 % (0.0-2.0); Eosinophils # (auto) 0 uL; Eosinophils % (auto) 0.4 % (0.0-7.0); Hematocrit 30.6 % (41.0-53.0); Hemoglobin 10.1 g/dL (13.5-17.5); Lymphocytes # (auto) 2.4 uL; Lymphocytes % (auto) 25.5 % (10.0-50.0); Mean Corpuscular Hemoglobin 28.6 pg (28.0-32.0); Mean Corpuscular Volume 86.6 fL (80.0-100.0); Monocytes # (auto) 0.9 uL; Monocytes % (auto) 9.5 % (0.0-12.0); Neutrophils # (auto) 6.1 uL; Neutrophils % (auto) 63.5 % (37.0-80.0); Platelet Count (auto) 272 10^3/uL (140-450); Red Blood Cells 3.54 10^6/uL (4.5-5.90); Red Cell Distribution Width 16.9 % (11.8-14.3); White Blood Cell 9.6 10^3/uL (4.4-10.8)
[2017-06-30] MEDS: ONDANSETRON HCL 4 MG/2 ML VIAL IV PRN (11:01)
[2017-06-30 11:43] LABS: BUN/Creatinine Ratio 14.8; Bilirubin, Total 0.4 mg/dL (0.2-1.0); Calcium 7.9 mg/dL (8.5-10.1); Potassium 3.5 mmol/L (3.5-5.1); Total Protein 6.7 g/dL (6.4-8.2)
[2017-06-30] MEDS ORDERED: TPN PER PHARMACY 0 ML IV SCH ×2 (12:00→12:15)
[2017-06-30 12:34] LABS: Phosphorus 2.8 mg/dL (2.5-4.90)
[2017-06-30] MEDS: LORazepam 2MG/ML-1ML VIAL IV PRN ×3 (13:25→23:19)
[2017-06-30] MEDS ORDERED: DEXTROSE (50%) 50ML SYRG IV SCH (13:30)
[2017-06-30] MEDS: FLUCONAZOLE 200MG/100ML 100 ML IV SCH (14:00)
[2017-06-30] MEDS ORDERED: NICOTINE 14 MG/24HR TOPICAL PATCH TD ONE (15:45)
[2017-06-30] MEDS: METOCLOPRAMIDE HCL 10 MG/10ml ORAL soln GT SCH ×2 (16:01→22:00)
[2017-06-30] MEDS: fentaNYL Drip 2500mCg/250mlNS 250 ML IV SCH (17:00)
[2017-06-30] MEDS: ACETAMINOPHEN 650 mg PER 20 mL UD GT PRN (17:02)
[2017-06-30] MEDS: ACCU-CHEK COMFORT CURVE STRIP VI SCH ×2 (17:59→23:20)
[2017-06-30] MEDS: InsuLIN REG 1unit/0.01ml Soln (100units/ml) SC SCH ×2 (17:59→23:26)
[2017-06-30] MEDS ORDERED: TPN PER PHARMACY IV NR ×9 (20:00)
[2017-07-01] VITALS (96 sets, daily range): BP systolic 110–151; BP diastolic 63–118
[2017-07-01] MEDS ORDERED: MIDAZOLAM DRIP 50 mg/50mL 50 ML IV ONE (00:46)
[2017-07-01] MEDS: MIDAZOLAM DRIP 50 mg/50mL 50 ML IV SCH ×3 (01:27→10:56)
[2017-07-01 03:59] LABS: Basophils # (auto) 0.1 uL; Basophils % (auto) 1.2 % (0.0-2.0); Eosinophils # (auto) 0.2 uL; Eosinophils % (auto) 1.9 % (0.0-7.0); Hematocrit 26.5 % (41.0-53.0); Hemoglobin 8.9 g/dL (13.5-17.5); Lymphocytes % (auto) 34.8 % (10.0-50.0); Mean Corpuscular Hemoglobin 28.9 pg (28.0-32.0); Mean Corpuscular Hgb Conc. 33.3 g/dL (32.0-36.0); Mean Corpuscular Volume 86.6 fL (80.0-100.0); Monocytes % (auto) 12.1 % (0.0-12.0); Neutrophils # (auto) 4.3 uL; Platelet Count (auto) 257 10^3/uL (140-450); Red Blood Cells 3.07 10^6/uL (4.5-5.90); Red Cell Distribution Width 17.1 % (11.8-14.3); White Blood Cell 8.6 10^3/uL (4.4-10.8)
[2017-07-01 04:17] LABS: Albumin 1.9 g/dL (3.4-5.0); BUN/Creatinine Ratio 10.7; Calcium 7.5 mg/dL (8.5-10.1)
[2017-07-01 04:19] LABS: Bilirubin, Total 0.4 mg/dL (0.2-1.0); Total Protein 5.7 g/dL (6.4-8.2)
[2017-07-01 04:21] LABS: Magnesium 1.9 mg/dL (1.6-2.6); Phosphorus 3.2 mg/dL (2.5-4.90)
[2017-07-01 04:27] LABS: Potassium 2.9 mmol/L (3.5-5.1)
[2017-07-01] MEDS: METOCLOPRAMIDE HCL 10 MG/10ml ORAL soln GT SCH ×3 (05:55→22:00)
[2017-07-01] MEDS: InsuLIN REG 1unit/0.01ml Soln (100units/ml) SC SCH ×3 (06:00→18:00)
[2017-07-01] MEDS ORDERED: POTASSIUM CHL 10% (20 MEQ/15ML) 15ml ORAL SOLN GT ONE (06:15)
[2017-07-01] MEDS: MEROPENEM 1gm/20ml IVPUSH 20 ML IV SCH ×3 (06:26→22:26)
[2017-07-01] MEDS: ACCU-CHEK COMFORT CURVE STRIP VI SCH ×3 (06:26→18:14)
[2017-07-01] MEDS: LEVALBUTEROL HCL 1.25 MG/3 ML NEB IN SCH ×3 (06:29→22:38)
[2017-07-01] MEDS: IPRATROPIUM BROM 0.5 MG/2.5ML INH SOL NEB SCH ×3 (06:29→22:38)
[2017-07-01] MEDS: PANTOPRAZOLE 40 MG/10 ML VIAL IV SCH (10:00)
[2017-07-01] MEDS: SERTRALINE HCL 50 MG TAB PO SCH (10:00)
[2017-07-01] MEDS: ASCORBIC ACID 500 MG TAB PO SCH ×2 (10:00→22:26)
[2017-07-01] MEDS: NICOTINE 14 MG/24HR TOPICAL PATCH TD SCH (10:00)
[2017-07-01] MEDS: POTASSIUM CHL 10% (20 MEQ/15ML) 15ml ORAL SOLN GT SCH (10:00)
[2017-07-01] MEDS: ENOXAPARIN SOD 40 MG/0.4 ML SYRINGE SC SCH (10:00)
[2017-07-01] MEDS ORDERED: POTASSIUM PHOSPHATE 44 MEQ in D5W 5% 250 ML IV ONE (10:00)
[2017-07-01] MEDS: SODIUM CHLOR 0.9% PF (SALINE LOCK) 10ML VIAL IV SCH ×2 (10:00→22:27)
[2017-07-01] MEDS: fentaNYL Drip 2500mCg/250mlNS 250 ML IV SCH (12:02)
[2017-07-01] MEDS: FLUCONAZOLE 200MG/100ML 100 ML IV SCH (14:00)
[2017-07-01] MEDS ORDERED: TPN PER PHARMACY IV NR ×9 (20:00)
[2017-07-02] VITALS (92 sets, daily range): BP systolic 106–139; BP diastolic 64–97
[2017-07-02] MEDS: ACCU-CHEK COMFORT CURVE STRIP VI SCH ×4 (00:06→17:48)
[2017-07-02 04:27] LABS: Potassium 3.8 mmol/L (3.5-5.1)
[2017-07-02 04:31] LABS: Albumin 1.9 g/dL (3.4-5.0); BUN/Creatinine Ratio 4.3; Calcium 7.8 mg/dL (8.5-10.1); Magnesium 1.8 mg/dL (1.6-2.6)
[2017-07-02 04:33] LABS: Bilirubin, Total 0.3 mg/dL (0.2-1.0)
[2017-07-02] MEDS: LEVALBUTEROL HCL 1.25 MG/3 ML NEB IN SCH ×3 (05:51→22:30)
[2017-07-02] MEDS: IPRATROPIUM BROM 0.5 MG/2.5ML INH SOL NEB SCH ×3 (05:51→22:30)
[2017-07-02] MEDS: METOCLOPRAMIDE HCL 10 MG/10ml ORAL soln GT SCH (06:00)
[2017-07-02] MEDS: InsuLIN REG 1unit/0.01ml Soln (100units/ml) SC SCH ×4 (06:00→17:48)
[2017-07-02 06:02] LABS: Basophils # (auto) 0.1 uL; Basophils % (auto) 0.7 % (0.0-2.0); Eosinophils # (auto) 0.3 uL; Eosinophils % (auto) 4.4 % (0.0-7.0); Hematocrit 29.9 % (41.0-53.0); Hemoglobin 10.1 g/dL (13.5-17.5); Lymphocytes # (auto) 2.6 uL; Lymphocytes % (auto) 34.1 % (10.0-50.0); Mean Corpuscular Hemoglobin 29.5 pg (28.0-32.0); Mean Corpuscular Hgb Conc. 33.7 g/dL (32.0-36.0); Mean Corpuscular Volume 87.3 fL (80.0-100.0); Monocytes # (auto) 0.9 uL; Monocytes % (auto) 12.2 % (0.0-12.0); Neutrophils # (auto) 3.6 uL; Neutrophils % (auto) 48.6 % (37.0-80.0); Nucleated Red Blood Cells % 0.1 %; Platelet Count (auto) 279 10^3/uL (140-450); Red Blood Cells 3.42 10^6/uL (4.5-5.90); Red Cell Distribution Width 16.6 % (11.8-14.3); White Blood Cell 7.5 10^3/uL (4.4-10.8)
[2017-07-02] MEDS: MEROPENEM 1gm/20ml IVPUSH 20 ML IV SCH ×3 (06:30→22:09)
[2017-07-02] MEDS ORDERED: DEXTROSE (50%) 50ML SYRG IV PRN (07:15)
[2017-07-02] MEDS: fentaNYL Drip 2500mCg/250mlNS 250 ML IV SCH (09:30)
[2017-07-02] MEDS: ENOXAPARIN SOD 40 MG/0.4 ML SYRINGE SC SCH (10:00)
[2017-07-02] MEDS: SERTRALINE HCL 50 MG TAB PO SCH (10:00)
[2017-07-02] MEDS: POTASSIUM CHL 10% (20 MEQ/15ML) 15ml ORAL SOLN GT SCH (10:00)
[2017-07-02] MEDS: PRO-STAT 64 30ML GT SCH ×2 (10:00→22:09)
[2017-07-02] MEDS: NICOTINE 14 MG/24HR TOPICAL PATCH TD SCH (10:00)
[2017-07-02] MEDS: SODIUM CHLOR 0.9% PF (SALINE LOCK) 10ML VIAL IV SCH ×2 (10:00→22:10)
[2017-07-02] MEDS: ASCORBIC ACID 500 MG TAB PO SCH ×2 (10:00→22:09)
[2017-07-02] MEDS: PANTOPRAZOLE 40 MG/10 ML VIAL IV SCH (10:00)
[2017-07-02] MEDS ORDERED: METOCLOPRAMIDE HCL 10 MG TAB PO ONE (13:32)
[2017-07-02] MEDS: FLUCONAZOLE 200MG/100ML 100 ML IV SCH (13:59)
[2017-07-02] MEDS ORDERED: TPN PER PHARMACY IV NR ×10 (20:00)
[2017-07-03] VITALS (72 sets, daily range): BP systolic 123–142; BP diastolic 85–100
[2017-07-03] MEDS: ACCU-CHEK COMFORT CURVE STRIP VI SCH ×4 (00:24→18:00)
[2017-07-03] MEDS: InsuLIN REG 1unit/0.01ml Soln (100units/ml) SC SCH ×4 (05:34→18:00)
[2017-07-03] MEDS: MEROPENEM 1gm/20ml IVPUSH 20 ML IV SCH ×2 (05:39→14:00)
[2017-07-03] MEDS: LEVALBUTEROL HCL 1.25 MG/3 ML NEB IN SCH ×2 (05:54→13:33)
[2017-07-03] MEDS: IPRATROPIUM BROM 0.5 MG/2.5ML INH SOL NEB SCH ×2 (05:54→13:33)
[2017-07-03 05:55] LABS: Basophils # (auto) 0.1 uL; Basophils % (auto) 1.3 % (0.0-2.0); Eosinophils # (auto) 0.2 uL; Eosinophils % (auto) 3.1 % (0.0-7.0); Hematocrit 31.7 % (41.0-53.0); Hemoglobin 10.7 g/dL (13.5-17.5); Lymphocytes # (auto) 2.6 uL; Lymphocytes % (auto) 35.4 % (10.0-50.0); Mean Corpuscular Hemoglobin 29.2 pg (28.0-32.0); Mean Corpuscular Hgb Conc. 33.6 g/dL (32.0-36.0); Mean Corpuscular Volume 86.7 fL (80.0-100.0); Monocytes # (auto) 0.9 uL; Neutrophils # (auto) 3.6 uL; Neutrophils % (auto) 48.2 % (37.0-80.0); Nucleated Red Blood Cells % 0.1 %; Platelet Count (auto) 259 10^3/uL (140-450); Red Blood Cells 3.66 10^6/uL (4.5-5.90); Red Cell Distribution Width 16.6 % (11.8-14.3); White Blood Cell 7.4 10^3/uL (4.4-10.8)
[2017-07-03 06:09] LABS: Potassium 3.7 mmol/L (3.5-5.1)
[2017-07-03] MEDS: fentaNYL Drip 2500mCg/250mlNS 250 ML IV SCH (09:03)
[2017-07-03] MEDS: SODIUM CHLOR 0.9% PF (SALINE LOCK) 10ML VIAL IV SCH (10:00)
[2017-07-03] MEDS: PRO-STAT 64 30ML GT SCH (10:00)
[2017-07-03] MEDS: ENOXAPARIN SOD 40 MG/0.4 ML SYRINGE SC SCH (10:00)
[2017-07-03] MEDS: NICOTINE 14 MG/24HR TOPICAL PATCH TD SCH (10:00)
[2017-07-03] MEDS: POTASSIUM CHL 10% (20 MEQ/15ML) 15ml ORAL SOLN GT SCH (10:00)
[2017-07-03] MEDS: ASCORBIC ACID 500 MG TAB PO SCH (10:00)
[2017-07-03] MEDS ORDERED: PANTOPRAZOLE 40 MG TAB PO SCH (10:00)
[2017-07-03] MEDS: SERTRALINE HCL 50 MG TAB PO SCH (10:00)
[2017-07-03] MEDS: FLUCONAZOLE 200MG/100ML 100 ML IV SCH (14:00)
[2017-07-03] MEDS ORDERED: HYDROcodone-ACET 5/325MG TAB PO ONE (16:30)
[2017-07-03] MEDS: ONDANSETRON HCL 4 MG/2 ML VIAL IV PRN (18:01)
[2017-07-03] MEDS: PROMETHAZINE HCL 25 MG/ML 1ML IV PRN (20:16)
== END 2017-07-03 21:21 | DRG 4 ==
LOC: ER 08:56 → EDBD 08:56 → TELE 08:57 → ICU WEST 22:13
PROVIDERS: ADMIT Internal Medicine; ATTEND Internal Medicine
PROC: 5A1955Z Respiratory Ventilation, Greater than 96 Consecutive Hours (ICD-10-PCS; principal; 2017-05-20)
PROC: 0BH17EZ Insertion of Endotracheal Airway into Trachea, Via Natural or Artificial Opening (ICD-10-PCS; 2017-05-20)
PROC: 0HQ1XZZ Repair Face Skin, External Approach (ICD-10-PCS; 2017-05-20)
PROC: 02HV33Z Insertion of Infusion Device into Superior Vena Cava, Percutaneous Approach (ICD-10-PCS; 2017-05-21)
PROC: 0B9F8ZZ Drainage of Right Lower Lung Lobe, Via Natural or Artificial Opening Endoscopic (ICD-10-PCS; 2017-05-22)
PROC: 0B9L8ZZ Drainage of Left Lung, Via Natural or Artificial Opening Endoscopic (ICD-10-PCS; 2017-05-22)
PROC: 0B9C8ZZ Drainage of Right Upper Lung Lobe, Via Natural or Artificial Opening Endoscopic (ICD-10-PCS; 2017-05-22)
PROC: 0B9D8ZZ Drainage of Right Middle Lung Lobe, Via Natural or Artificial Opening Endoscopic (ICD-10-PCS; 2017-05-22)
PROC: 0B938ZZ Drainage of Right Main Bronchus, Via Natural or Artificial Opening Endoscopic (ICD-10-PCS; 2017-05-22)
PROC: 0BBN0ZZ Excision of Right Pleura, Open Approach (ICD-10-PCS; 2017-05-22)
PROC: 0BBC0ZX Excision of Right Upper Lung Lobe, Open Approach, Diagnostic (ICD-10-PCS; 2017-05-22)
PROC: 0W9930Z Drainage of Right Pleural Cavity with Drainage Device, Percutaneous Approach (ICD-10-PCS; 2017-05-30)
PROC: 0B110F4 Bypass Trachea to Cutaneous with Tracheostomy Device, Open Approach (ICD-10-PCS; 2017-06-03)
PROC: 30233N1 Transfusion of Nonautologous Red Blood Cells into Peripheral Vein, Percutaneous Approach (ICD-10-PCS; 2017-06-03)
PROC: 0BNK0ZZ Release Right Lung, Open Approach (ICD-10-PCS; 2017-06-12)
PROC: 0W9900Z Drainage of Right Pleural Cavity with Drainage Device, Open Approach (ICD-10-PCS; 2017-06-12)
PROC: 0WP9X0Z Removal of Drainage Device from Right Pleural Cavity, External Approach (ICD-10-PCS; 2017-06-12)
PROC: 0DH63UZ Insertion of Feeding Device into Stomach, Percutaneous Approach (ICD-10-PCS; 2017-06-22)
PROC: 02HV33Z Insertion of Infusion Device into Superior Vena Cava, Percutaneous Approach (ICD-10-PCS; 2017-06-24)
DX: A41.89 Other specified sepsis (principal); R65.21 Severe sepsis with septic shock; N17.0 Acute kidney failure with tubular necrosis; E43 Unspecified severe protein-calorie malnutrition; R64 Cachexia; J15.0 Pneumonia due to Klebsiella pneumoniae; J15.211 Pneumonia due to Methicillin susceptible Staphylococcus aureus; D69.6 Thrombocytopenia, unspecified; J10.08 Influenza due to other identified influenza virus with other specified pneumonia; J98.4 Other disorders of lung; E87.0 Hyperosmolality and hypernatremia; J96.01 Acute respiratory failure with hypoxia; D64.9 Anemia, unspecified; E11.9 Type 2 diabetes mellitus without complications; E21.3 Hyperparathyroidism, unspecified; E86.1 Hypovolemia; E87.5 Hyperkalemia; F11.10 Opioid abuse, uncomplicated; S01.81XA Laceration without foreign body of other part of head, initial encounter; F17.210 Nicotine dependence, cigarettes, uncomplicated; R79.89 Other specified abnormal findings of blood chemistry; R74.8 Abnormal levels of other serum enzymes; F15.10 Other stimulant abuse, uncomplicated; F41.9 Anxiety disorder, unspecified; N17.9 Acute kidney failure, unspecified; W18.39XA Other fall on same level, initial encounter; Y93.89 Activity, other specified; Y92.89 Other specified places as the place of occurrence of the external cause; Z68.1 Body mass index [BMI] 19.9 or less, adult; E87.70 Fluid overload, unspecified; J93.83 Other pneumothorax; E87.6 Hypokalemia; Y99.8 Other external cause status; Z99.11 Dependence on respirator [ventilator] status; Z71.3 Dietary counseling and surveillance; J93.82 Other air leak
CPT/HCPCS: 12013; 31622; 31720; 32554; 36415; 36569; 36600; 43246; 70450; 71045; 71250; 76775; 80048; 80053; 80061; 80202; 80307; 81001; 82040; 82270; 82271; 82805; 82962; 83036; 83605; 83735; 83935; 83970; 84100; 84132; 84478; 85007; 85014; 85018; 85025; 85027; 85610; 85730; 86360; 86703; 86850; 86900; 86901; 86920; 87040; 87070; 87077; 87081; 87086; 87186; 87205; 87400; 87493; 90715; 92610; 93005; 93306; 94002; 94003; 94640; 96361; 96365; 96375; 96379; 97163; 99291; C9113; J0171; J0330; J1450; J2250; J2405; J2543; J2704; J3010; J3480; J3490; J7060; J7131

== ENCOUNTER 2017-10-05 01:22 | Emergency (ER) | payer MEDICAID, OTHER ==
[~2017-10-05] VITALS: Ht 160 cm; Wt 59.0 kg
[2017-10-05 01:35] VITALS: BP 167/100
[2017-10-05 02:02] LABS: Basophils # (auto) 0.1 uL; Basophils % (auto) 0.4 % (0.0-2.0); Eosinophils # (auto) 0 uL; Eosinophils % (auto) 0.2 % (0.0-7.0); Hematocrit 40.6 % (41.0-53.0); Hemoglobin 13.8 g/dL (13.5-17.5); Lymphocytes # (auto) 1.7 uL; Lymphocytes % (auto) 7.3 % (10.0-50.0); Mean Corpuscular Hemoglobin 28.1 pg (28.0-32.0); Mean Corpuscular Volume 82.5 fL (80.0-100.0); Monocytes # (auto) 1.2 uL; Monocytes % (auto) 5.2 % (0.0-12.0); Neutrophils # (auto) 19.9 uL; Neutrophils % (auto) 86.9 % (37.0-80.0); Nucleated Red Blood Cells % 0.2 %; Platelet Count (auto) 253 10^3/uL (140-450); Red Blood Cells 4.93 10^6/uL (4.5-5.90); Red Cell Distribution Width 13.5 % (11.8-14.3); White Blood Cell 22.9 10^3/uL (4.4-10.8)
[2017-10-05 02:22] LABS: Alanine Aminotransferase 10 U/L (16-61); Albumin 3.5 g/dL (3.4-5.0); Anion Gap 7 (5-15); Aspartate Aminotransferase 8 U/L (15-37); Blood Urea Nitrogen 5 mg/dL (7-18); Calcium 8.8 mg/dL (8.5-10.1); Carbon Dioxide 23 mmol/L (21-32); Chloride 110 mmol/L (98-107); GFR African American 138 mL/min; GFR Non-African American 114 mL/min; Glucose 110 mg/dL (74-106); Magnesium 1.8 mg/dL (1.6-2.6); Potassium 3.3 mmol/L (3.5-5.1); Sodium 140 mmol/L (136-145)
[2017-10-05 02:27] LABS: Alkaline Phosphatase 115 U/L (45-117); Bilirubin, Total 0.2 mg/dL (0.2-1.0); Total Protein 7.4 g/dL (6.4-8.2)
== END 2017-10-05 04:41 | disposition left against medical advice (07) ==
LOC: ER 01:22
DX: R06.02 Shortness of breath (principal); Z53.21 Procedure and treatment not carried out due to patient leaving prior to being seen by health care provider
CPT/HCPCS: 36415; 71045; 80053; 83735; 84484; 85025; 93005

== ENCOUNTER 2018-07-03 15:28 | Emergency (ER) | payer MEDICAID, OTHER ==
[~2018-07-03] VITALS: Ht 160 cm; Wt 61.7 kg
[2018-07-03 15:45] VITALS: BP 140/98
[2018-07-03] MEDS ORDERED: cefTRIAXone SOD 1,000 MG VL IM ONE (17:00)
== END 2018-07-03 17:42 | disposition left against medical advice (07) ==
LOC: ER 15:28
DX: J40 Bronchitis, not specified as acute or chronic (principal); E11.9 Type 2 diabetes mellitus without complications
CPT/HCPCS: 71046; 93005

== ENCOUNTER 2018-09-02 07:41 | Inpatient (IN) | payer MEDICAID | END 2018-09-04 03:34 | disposition still patient (30) | LOC: ER 07:41 → OVERFLOW 10:45 → DOU IN ICU 13:17 | DX: A41.9 Sepsis, unspecified organism (principal); J18.9 Pneumonia, unspecified organism; I42.9 Cardiomyopathy, unspecified; E87.6 Hypokalemia; J44.0 Chronic obstructive pulmonary disease with (acute) lower respiratory infection ==